=== PATIENT | female | born 1945 | race Caucasian/White ===

== ENCOUNTER 2016-10-30 11:09 | Observation (INO) | payer MEDICARE, OTHER ==
[2016-10-30] MEDS ORDERED: NITROGLYCERIN OINT 1 INCH/GM PACKET TOPICAL STA (11:27)
[2016-10-30] MEDS ORDERED: ASPIRIN 81 MG CHEW PO STA (11:27)
--- NOTE | 2016-10-30 11:29 | ED ---
General Adult HPI - General Chief complaint: Chest Pain Stated complaint: Chest Pain Time Seen by Provider: 10/30/16 11:16 Source: patient, RN notes reviewed Mode of arrival: wheelchair Limitations: no limitations - History of Present Illness Initial comments: Patient is a pleasant 71-year-old female presenting to the emergency department complaining of chest discomfort. Onset was when she woke this morning. Discomfort was more severe then improved and now has resolved. Discomfort improved over a couple of hours. Discomfort did feel like indigestion. Patient does have a history of previous heart attack however this does not feel similar. Discomfort is sternal. No associated dyspnea, nausea, or diaphoresis. No radiation. - Related Data Home Medications Medication Instructions Recorded Confirmed Aspirin 325 mg PO DAILY 10/30/16 10/30/16 Cyanocobalamin (Vitamin B-12) 1,000 mcg PO DAILY 10/30/16 10/30/16 [Vitamin B-12] Ferrous Sulfate [Feosol] 325 mg PO DAILY 10/30/16 10/30/16 Glimepiride [Amaryl] 1 mg PO DAILY 10/30/16 10/30/16 Isosorbide Mononitrate 20 mg PO DAILY 10/30/16 10/30/16 Losartan Potassium [Losartan 25 mg PO DAILY 10/30/16 10/30/16 Potassium] Magnesium Oxide [Magnesium] 500 mg PO DAILY 10/30/16 10/30/16 Metoprolol Tartrate 25 mg PO DAILY 10/30/16 10/30/16 Omeprazole [Omeprazole] 20 mg PO DAILY 10/30/16 10/30/16 Simvastatin [Simvastatin] 20 mg PO HS 10/30/16 10/30/16 Sodium Bicarbonate Tab 650 mg PO DAILY 10/30/16 10/30/16 busPIRone HCL [busPIRone HCL] 10 mg PO BID 10/30/16 10/30/16 traMADol HCl [Ultram] 50 mg PO QID PRN 10/30/16 10/30/16 Allergies Allergy/AdvReac Type Severity Reaction Status Date / Time No Known Allergies Allergy Verified 10/30/16 11:16 Review of Systems ROS Statement: Those systems with pertinent positive or pertinent negative responses have been documented in the HPI. ROS Other: All systems not noted in ROS Statement are negative. Constitutional: Denies: fever Eyes: Denies: eye pain ENT: Denies: ear pain Respiratory: Denies: cough, dyspnea Cardiovascular: Reports: chest pain Endocrine: Denies: fatigue Gastrointestinal: Denies: abdominal pain, nausea, vomiting Genitourinary: Denies: urgency Musculoskeletal: Denies: back pain Skin: Denies: rash Neurological: Denies: weakness Past Medical History Past Medical History: Coronary Artery Disease (CAD), CVA/TIA, Diabetes Mellitus , Hyperlipidemia, Hypertension, Myocardial Infarction ([place]) History of Any Multi-Drug Resistant Organisms: None Reported Past Surgical History: Bowel Resection, Orthopedic Surgery Additional Past Surgical History / Comment(s): toe amputation hand Past Psychological History: No Psychological Hx Reported Smoking Status: Former smoker Past Alcohol Use History: None Reported Past Drug Use History: None Reported General Exam Limitations: no limitations General appearance: alert, in no apparent distress Head exam: Present: atraumatic Eye exam: Present: normal appearance, PERRL ENT exam: Present: normal oropharynx Neck exam: Present: normal inspection Respiratory exam: Present: normal lung sounds bilaterally. Absent: chest wall tenderness Cardiovascular Exam: Present: regular rate, normal rhythm Expanded Peripheral pulses: 2+: Radial (R), Radial (L), Dorsalis Pedis (R), Dorsalis Pedis (L) GI/Abdominal exam: Present: soft. Absent: tenderness Extremities exam: Present: normal inspection Neurological exam: Present: alert Psychiatric exam: Present: normal affect, normal mood Skin exam: Present: normal color Course Vital Signs 10/30/16 10/30/16 10/30/16 11:13 11:39 12:00 Temperature 99.0 F Pulse Rate 79 71 58 L Respiratory 18 20 16 Rate Blood Pressure 111/53 106/52 122/58 O2 Sat by Pulse 97 96 98 Oximetry 10/30/16 14:28 Temperature 98.1 F Pulse Rate 65 Respiratory 16 Rate Blood Pressure 93/50 O2 Sat by Pulse 97 Oximetry EKG Findings - EKG Comments: EKG Findings:: Normal sinus rhythm 74. Normal intervals. Normal axis. Normal QRS. Normal ST-T. Medical Decision Making - Medical Decision Making Patient reevaluated and resting comfortably in bed. Patient and family updated on results and plan. Dr. barnett has been paged for admission for Dr. Harris. - Lab Data Result diagrams: 10/30/16 11:57 10/30/16 11:57 Lab Results 10/30/16 10/30/16 10/30/16 Range/Units 11:57 11:57 11:57 WBC 8.0 (3.8-10.6) k/uL RBC 3.31 L (3.80-5.40) m/uL Hgb 10.8 L (11.4-16.0) gm/dL Hct 32.2 L (34.0-46.0) % MCV 97.4 (80.0-100.0) fL MCH 32.6 (25.0-35.0) pg MCHC 33.4 (31.0-37.0) g/dL RDW 14.2 (11.5-15.5) % Plt Count 156 (150-450) k/uL Neutrophils % 79 % Lymphocytes % 14 % Monocytes % 4 % Eosinophils % 1 % Basophils % 0 % Neutrophils # 6.3 (1.3-7.7) k/uL Lymphocytes # 1.1 (1.0-4.8) k/uL Monocytes # 0.3 (0-1.0) k/uL Eosinophils # 0.1 (0-0.7) k/uL Basophils # 0.0 (0-0.2) k/uL PT (9.0-12.0) sec INR (<1.1) APTT (22.0-30.0) sec Sodium 140 (137-145) mmol/L Potassium 4.7 (3.5-5.1) mmol/L Chloride 108 H (98-107) mmol/L Carbon Dioxide 21 L (22-30) mmol/L Anion Gap 11 mmol/L BUN 27 H (7-17) mg/dL Creatinine 1.31 H (0.52-1.04) mg/dL Est GFR (MDRD) Af Amer 48 (>60 ml/min/1.73 sqM) Est GFR (MDRD) Non-Af 40 (>60 ml/min/1.73 sqM) Glucose 221 H (74-99) mg/dL Calcium 9.1 (8.4-10.2) mg/dL Magnesium 1.5 L (1.6-2.3) mg/dL Total Bilirubin 1.0 (0.2-1.3) mg/dL AST 24 (14-36) U/L ALT 33 (9-52) U/L Alkaline Phosphatase 59 (38-126) U/L Total Creatine Kinase 70 (30-135) U/L CK-MB (CK-2) 1.4 (0.0-2.4) ng/mL CK-MB (CK-2) Rel Index 2.0 Troponin I <0.012 (0.000-0.034) ng/mL Total Protein 7.0 (6.3-8.2) g/dL Albumin 3.6 (3.5-5.0) g/dL 10/30/16 Range/Units 11:57 WBC (3.8-10.6) k/uL RBC (3.80-5.40) m/uL Hgb (11.4-16.0) gm/dL Hct (34.0-46.0) % MCV (80.0-100.0) fL MCH (25.0-35.0) pg MCHC (31.0-37.0) g/dL RDW (11.5-15.5) % Plt Count (150-450) k/uL Neutrophils % % Lymphocytes % % Monocytes % % Eosinophils % % Basophils % % Neutrophils # (1.3-7.7) k/uL Lymphocytes # (1.0-4.8) k/uL Monocytes # (0-1.0) k/uL Eosinophils # (0-0.7) k/uL Basophils # (0-0.2) k/uL PT 10.8 (9.0-12.0) sec INR 1.1 (<1.1) APTT 23.3 (22.0-30.0) sec Sodium (137-145) mmol/L Potassium (3.5-5.1) mmol/L Chloride (98-107) mmol/L Carbon Dioxide (22-30) mmol/L Anion Gap mmol/L BUN (7-17) mg/dL Creatinine (0.52-1.04) mg/dL Est GFR (MDRD) Af Amer (>60 ml/min/1.73 sqM) Est GFR (MDRD) Non-Af (>60 ml/min/1.73 sqM) Glucose (74-99) mg/dL Calcium (8.4-10.2) mg/dL Magnesium (1.6-2.3) mg/dL Total Bilirubin (0.2-1.3) mg/dL AST (14-36) U/L ALT (9-52) U/L Alkaline Phosphatase (38-126) U/L Total Creatine Kinase (30-135) U/L CK-MB (CK-2) (0.0-2.4) ng/mL CK-MB (CK-2) Rel Index Troponin I (0.000-0.034) ng/mL Total Protein (6.3-8.2) g/dL Albumin (3.5-5.0) g/dL - Radiology Data Radiology results: image reviewed (Chest x-ray shows borderline cardiomegaly.) Critical Care Time Critical Care Time: Yes Total Critical Care Time: 31 Disposition Clinical Impression: Unstable angina pectoris Disposition: ADMITTED IP TO THIS [facility] Condition: Serious Referrals: Martina Harris MD [Primary Care Provider] - 1-2 days Time of Disposition: 14:50
--- NOTE | 2016-10-30 11:51 | XR ---
EXAMINATION TYPE: XR chest 2V DATE OF EXAM: 10/30/2016 HISTORY: Chest Pain. REFERENCE: Previous study dated 07/07/2013. FINDINGS: Heart size upper limits of normal. The lungs appear clear. Pleural spaces are clear. IMPRESSION: BORDERLINE CARDIOMEGALY.
[2016-10-30 12:20] LABS: Basophils % (A) 0 %; CH 33.1; CHCM 34.2; Eosinophils # (A) 0.1 k/uL (0-0.7); Eosinophils % (A) 1 %; HCT 32.2 % (34.0-46.0); HDW 2.94; HGB 10.8 gm/dL (11.4-16.0); Luc # (Auto) 0.14; Luc % (Auto) 2; Lymphocytes # (A) 1.1 k/uL (1.0-4.8); Lymphocytes % (A) 14 %; MCH 32.6 pg (25.0-35.0); MCHC 33.4 g/dL (31.0-37.0); MCV 97.4 fL (80.0-100.0); Mean Platelet Volume 7.3; Monocytes # (A) 0.3 k/uL (0-1.0); Monocytes % (A) 4 %; Neutrophils # (A) 6.3 k/uL (1.3-7.7); Neutrophils % (A) 79 %; RBC 3.31 m/uL (3.80-5.40); RDW 14.2 % (11.5-15.5); WBC (Perox) 8.33
[2016-10-30 12:28] LABS: INR 1.1 (<1.1); Partial Thromboplastin Time 23.3 sec (22.0-30.0); Prothrombin Time 10.8 sec (9.0-12.0)
[2016-10-30 12:35] LABS: Calcium 9.1 mg/dL (8.4-10.2); Magnesium 1.5 mg/dL (1.6-2.3); Potassium 4.7 mmol/L (3.5-5.1)
[2016-10-30 12:46] LABS: Creatine Kinase 70 U/L (30-135)
[2016-10-30 13:00] LABS: Creatine Kinase MB 1.4 ng/mL (0.0-2.4); Troponin I <0.012 ng/mL (0.000-0.034)
[2016-10-30] MEDS ORDERED: MAGNESIUM OXIDE 400 MG TAB PO STA (14:37)
[2016-10-30] MEDS ORDERED: HEPARIN SODIUM,PORCINE 5,000 UNIT/ML 1 ML VIAL IV ONE (14:50)
[2016-10-30] MEDS ORDERED: NITROGLYCERIN SL TABS 0.4 MG TAB SUBLINGUAL PRN (14:50)
[2016-10-30] MEDS ORDERED: HEPARIN SODIUM,PORCINE 5,000 UNIT/ML 1 ML VIAL IV PRN (14:50)
[2016-10-30] MEDS ORDERED: HEPARIN SODIUM,PORCINE/D5W PMX 25,000 UNIT in DEXTROSE/WATER 1 500ML.BAG IV SCH (15:00)
[2016-10-30 17:14] LABS: Glucose,Whole Blood 90 mg/dL (75-99)
[2016-10-30] MEDS: NITROGLYCERIN OINT 1 INCH/GM PACKET TOPICAL SCH (17:32)
[2016-10-30] MEDS ORDERED: Magnesium Replacement Protocol 1 EACH MISC MISCELLANE PRN (19:06)
[2016-10-30] MEDS ORDERED: traMADol 50 MG TAB PO PRN (19:06)
[2016-10-30 20:31] LABS: Glucose,Whole Blood 202 mg/dL (75-99)
[2016-10-30] MEDS ORDERED: FERROUS SULFATE 325 MG TAB PO STA (20:38)
[2016-10-30 20:59] LABS: Creatine Kinase 85 U/L (30-135)
[2016-10-30] MEDS ORDERED: ATORVASTATIN 10 MG TAB PO SCH (21:00)
[2016-10-30 21:09] LABS: Creatine Kinase MB 1.3 ng/mL (0.0-2.4); Troponin I <0.012 ng/mL (0.000-0.034)
[2016-10-30] MEDS: busPIRone HCl 10 MG TAB PO SCH (22:44)
[2016-10-31] MEDS ORDERED: TEMAZEPAM 15 MG CAP PO PRN (00:02)
[2016-10-31] MEDS ORDERED: HYDROmorphone 1 MG/ML 1 ML SYRINGE IVP PRN (00:02)
[2016-10-31 00:37] LABS: Creatine Kinase 83 U/L (30-135)
[2016-10-31 00:50] LABS: Creatine Kinase MB 1.1 ng/mL (0.0-2.4); Troponin I <0.012 ng/mL (0.000-0.034)
[2016-10-31 03:46] LABS: Basophils % (A) 0 %; CH 32.9; CHCM 33.7; Eosinophils # (A) 0.1 k/uL (0-0.7); Eosinophils % (A) 3 %; HCT 29.9 % (34.0-46.0); HDW 2.88; HGB 9.9 gm/dL (11.4-16.0); Luc # (Auto) 0.14; Luc % (Auto) 3; Lymphocytes # (A) 1.3 k/uL (1.0-4.8); Lymphocytes % (A) 25 %; MCH 32.6 pg (25.0-35.0); MCHC 33.2 g/dL (31.0-37.0); MCV 98.1 fL (80.0-100.0); Mean Platelet Volume 7.4; Monocytes # (A) 0.4 k/uL (0-1.0); Monocytes % (A) 7 %; Neutrophils # (A) 3.3 k/uL (1.3-7.7); Neutrophils % (A) 63 %; RBC 3.04 m/uL (3.80-5.40); RDW 14.2 % (11.5-15.5); WBC 5.3 k/uL (3.8-10.6); WBC (Perox) 5.52
[2016-10-31 04:35] LABS: Calcium 8.5 mg/dL (8.4-10.2); Magnesium 1.6 mg/dL (1.6-2.3); Potassium 4.2 mmol/L (3.5-5.1)
[2016-10-31] MEDS: NITROGLYCERIN OINT 1 INCH/GM PACKET TOPICAL SCH ×3 (05:41→13:23)
[2016-10-31 06:44] LABS: Glucose,Whole Blood 137 mg/dL (75-99)
[2016-10-31 07:16] VITALS: RESP 16
[2016-10-31] MEDS ORDERED: PANTOPRAZOLE 40 MG TABLET PO SCH (07:30)
[2016-10-31] MEDS ORDERED: FERROUS SULFATE 325 MG TAB PO SCH (09:00)
[2016-10-31] MEDS ORDERED: GLIMEPIRIDE 1 MG TAB PO SCH (09:00)
[2016-10-31] MEDS ORDERED: ASPIRIN 325 MG TAB PO SCH ×2 (09:00)
[2016-10-31] MEDS ORDERED: MAGNESIUM OXIDE 400 MG TAB PO SCH (09:00)
[2016-10-31] MEDS ORDERED: LOSARTAN 25 MG TAB PO SCH (09:00)
[2016-10-31] MEDS ORDERED: SODIUM BICARBONATE TAB 650 MG TAB PO SCH (09:00)
[2016-10-31] MEDS ORDERED: METOPROLOL TARTRATE 25 MG TAB PO SCH (09:00)
[2016-10-31] MEDS ORDERED: ISOSORBIDE MONONITRATE 20 MG TAB PO SCH (09:00)
[2016-10-31] MEDS: busPIRone HCl 10 MG TAB PO SCH (09:05)
--- NOTE | 2016-10-31 10:49 | HP ---
DATE OF ADMISSION: 10/30/2016 The chief complaints are chest pain. HISTORY OF PRESENT ILLNESS: This 71-year-old woman with a pass medical history of multiple medical problems, including history of CAD, history of CVA, TIA, diabetes mellitus, DVT, gastroesophageal reflux disease, hypertension, hyperlipidemia, myocardial infarction, vascular disorder, appendectomy, bladder surgery, bowel resection, being followed by Dr. Harris in the outpatient setting was complaining of abdominal pain, which was felt mostly in the epigastrium since this morning when the patient awoke. The pain lasted for about a couple hours. There is no radiation. There is no sweating or palpitations. No history of any hematochezia, melena, there is no history of fever, rigors or chills at this time. PAST MEDICAL HISTORY: History of CAD, history of CVA, TIA, history of diabetes, DVT history of GERD, hypertension, hyperlipidemia, history of myocardial infarction, history of appendectomy, bladder surgery. Medications prior to admission include home medications are: 1. Magnesium 500 mg p.o. daily. 2. Iron sulfate 320 mg daily. 3. Vitamin B12 1000 mcg p.o. daily. 4. Aspirin 320 mg daily. 5. Ultram 50 mg q.i.d. p.r.n. 6. Sodium bicarb 650 p.o. daily. 8. Omeprazole 20 mg p.o. daily. 9. Metoprolol 25 mg a daily. 10. Losartan 25 mg p.o. daily. 11. Imdur 20 mg daily. 12. Amaryl 1 mg p.o. daily. 13. Buspirone 10 mg p.o. b.i.d. ALLERGIES: None. FAMILY HISTORY: History of diabetes mellitus in the family. SOCIAL HISTORY: Previous history of smoking. No history of current smoking. No alcohol intake. REVIEW OF SYSTEMS: ENT: Diminishing hearing. Diminished vision. CARDIOVASCULAR SYSTEM: As mentioned earlier. GI: As mentioned earlier. : No dysuria. Nervous system: No numbness or weakness. ALLERGIES/IMMUNOLOGY: No asthma or hayfever. MUSCULOSKELETAL: As mentioned earlier. HEMATOLOGY/ONCOLOGY: No history of anemia. ENDOCRINE: No history of diabetes or hypothyroidism. CONSTITUTIONAL: As mentioned earlier. DERMATOLOGY: Negative. RHEUMATOLOGY: Negative. PSYCHIATRY: As mentioned earlier. PHYSICAL EXAMINATION: Alert and oriented times three. Pulse 76, blood pressure 131/62 respirations 18, temperature 98.8. Pulse ox 97% on room air. HEENT: Oral mucosa moist. NECK: No jugular venous distention. No carotid bruit. No lymph node enlargement. CARDIOVASCULAR: S1, S2 muffled. No S3, no S4. RESPIRATORY: Breath sounds diminished at the bases. No rhonchi, no crackles. ABDOMEN: Soft, nontender. No mass palpable. No guarding. No rigidity. LEGS: No edema. No swelling. CENTRAL NERVOUS SYSTEM: Higher functions as mentioned earlier. Moves all four limbs. No focal deficits. LYMPHATICS: No lymph nodes palpable in the neck, axillae or groin. SKIN: No ulcer, rash or bleeding. LABS: WBC 8, hemoglobin is 10.8. Creatinine is 1.31, glucose 221. ASSESSMENT: 1. Chest pain and epigastric pain, possible unstable angina, possible gastroesophageal reflux disease. 2. Increased creatinine with possible mild acute renal failure secondary to dehydration. 3. Decreased CO2. 4. Hypomagnesemia. 5. Anemia, normocytic anemia of chronic disease. 6. History of coronary artery disease. 7. History of cerebrovascular accident. 8. Diabetes mellitus type 2. 9. History of deep venous thrombosis. 10. History of gastroesophageal reflux disease. 11. Hypertension. 12. Hyperlipidemia. 13. History of myocardial infarction. 14. History of degenerative joint disease. 15. History of transient ischemic attack. 16. History of rectal cancer status post chemoradiation. 17. History of chronic obstructive pulmonary disease. 18. History of appendectomy. 19. History of colonoscopy. 20. Remote history of nicotine dependence. 21. FULL CODE. RECOMMENDATIONS AND DISCUSSION: In this 71-year-old woman who presented with the multiple complex medical issues, we will monitor the patient closely. Continue the current medications. Continue symptomatic treatment. Otherwise proton pump inhibitors. I would also recommend cardiology consultation. Resume the home medications. Rule out myocardial infarction. Guarded prognosis because of multiple complex medical issues. Further recommendations to follow. A copy of dictation being forwarded to Dr. Harris who is the primary physician. Discussed with the patient. Understands and agrees. AISHA
[2016-10-31 11:44] VITALS: BP 124/62; PULSE 59; TEMP 97.7
[2016-10-31] MEDS ORDERED: CYANOCOBALAMIN 500 MCG TAB PO SCH (12:00)
[2016-10-31 12:08] LABS: Glucose,Whole Blood 264 mg/dL (75-99)
--- NOTE | 2016-10-31 12:48 | CONS ---
DATE OF CONSULTATION: This is a 71-year-old lady with a history of remote myocardial infarction 1994, details unclear. Has hypertension, hyperlipidemia and type 2 diabetes mellitus, and anemia. I see her in the office usually and the last visit was in April of last year. She also had a stress test, which did not reveal any ischemia about 15 months ago. At the time of my evaluation, she is resting comfortably without symptoms, but she came into the hospital with an episode of what she described as a sharp pain in the chest. She woke up and then felt that there was some abdominal discomfort. Then she felt some sharp discomfort in the chest that seemed to go away and then came back again. She felt concerned and came into the hospital. Pain has resolved. Her troponins are normal. She is resting comfortably. Denies any recurrence of symptoms. Her stress test about 14 to 15 months ago was unremarkable for ischemia. She is asymptomatic at the time of my evaluation of troponins are normal. EKG revealed evidence of old anteroseptal NE, no acute changes. PAST MEDICAL HISTORY: 1. History of CAD, previous myocardial infarction, details unclear, but recent stress did not reveal ischemia. 2. Type 2 diabetes mellitus. 3. Hypertension. 4. Hyperlipidemia. 5. Status post bowel resection. 6. Some orthopedic surgery with amputation of a toe, details unclear. 7. Patient also has anemia and is on iron supplements. SOCIAL HISTORY: Patient quit smoking several years ago, does not use alcohol. ALLERGIES: NONE. MEDICATIONS: Include: 1. Omeprazole 20 mg daily. 2. Simvastatin 20 mg daily. 3. Tramadol. 4. Metoprolol tartrate 25 mg daily. 5. Losartan 25 mg daily. 6. Glimepiride 1 mg daily. 7. Iron supplements. 8. Aspirin 81 mg daily. On examination, blood pressure is 130/70, pulse rate is 70 per minute, regular. HEENT: Unremarkable. Fundus was not examined by me. Neck is supple. No JVD. I do not hear a carotid bruit. There is no thyromegaly. Heart exam reveals S1 and S2 heard normally without any significant rub, murmur or gallop. Lungs are clear. ABDOMEN: Soft, nontender. Lower extremities reveal normal pulses. No edema. Central nervous system is normal. EKG revealed sinus mechanism, QRS pattern in leads V1 to V3 could be possibly old anteroseptal NE. No acute changes. LABORATORY DATA: Revealed her troponins are unremarkable. She has a mildly elevated creatinine at 1.22. Hemoglobin is down to about 9.9, but she seems to be chronically low and takes iron supplements. IMPRESSION: 1. Chest pain syndrome very atypical, does not seem angina. 2. Hypertension. 3. Type 2 diabetes. 4. Hyperlipidemia. 5. Remote history of myocardial infarction with unremarkable stress test 14 to 15 months ago. RECOMMENDATIONS: I am recommending that we discontinue heparin, increase activity. If she has no further symptoms, she can be discharged and I will see her in the office next Wednesday. Appointment were has been made and we will then make further recommendations. Her presentation today appears to be quite atypical and I will pursue any work-up as an outpatient. Discussed my thoughts in detail with the patient will and this note will go to her primary care physician, Dr. Harris.
--- NOTE | 2016-11-01 14:14 | DS ---
DATE OF ADMISSION: 10/30/2016 DATE OF DISCHARGE: 10/31/2016 FINAL DIAGNOSES: 1. Chest pain, with epigastric pain, possible unstable angina, possible gastroesophageal reflux disease, improved. 2. Increased creatinine with possible mild acute renal failure secondary to dehydration, improved. 3. Decreased CO2. 4. Mild hypomagnesemia. 5. Anemia, normocytic anemia of chronic disease. 6. History of coronary artery disease. 7. History of cerebrovascular accident. 8. Diabetes mellitus type 2. 9. History of deep venous thrombosis. 10. History of gastroesophageal reflux disease. 11. Hypertension, essential. 12. Hyperlipidemia. 13. History of myocardial infarction. 14. History of degenerative joint disease. 15. History of transient ischemic attack. 16. History of rectal cancer status post chemoradiation. 17. Chronic obstructive pulmonary disease. 18. History of appendectomy. 19. History of colonoscopy. 20. Remote history of nicotine dependence. 21. FULL CODE. DISCHARGE DISPOSITION: Patient will be discharged in a stable condition with guarded prognosis. HISTORY OF PRESENT ILLNESS: This 71-year-old woman with a past history of multiple medical problems was admitted with features of chest pain and epigastric pain. The patient is being monitored closely. Myocardial infarction ruled out. On exam, vital signs are stable. CARDIOVASCULAR: S1, S2 muffled. Abdomen soft. Nervous system: No focal deficits. Discharge advice and medications: 1. Discharge diet is cardiac. 2. Activity limited until follow-up. 3. Follow up with Dr. Harris 2 to 3 days. 4. Follow up with Dr. Smith Ann as advised. 5. Dr. Smith Ann cleared the patient for discharge. MEDICATIONS: 1. Aspirin 325 mg daily. 2. Buspirone 10 mg p.o. b.i.d. 3. Vitamin B12 1000 mg p.o. daily. 4. Iron Sulfate 325 mg p.o. daily. 5. Amaryl 1 mg p.o. daily. 6. Imdur 20 mg p.o. daily. 7. Losartan 25 mg p.o. daily. 8. Magnesium 500 mg p.o. daily. 9. Metoprolol 25 mg p.o. daily. 10. Omeprazole 20 mg p.o. daily. 11. Simvastatin 20 p.o. daily. 12. Sodium bicarb 650 p.o. daily. 13. Ultram 50 mg q.i.d. p.r.n.
== END 2016-10-31 14:50 | disposition home or self-care (01) ==
LOC: EC 11:09 → 3OBS 14:50 → INTOOBSV 14:50
PROVIDERS: ADMIT Internal Medicine; ATTEND Internal Medicine
DX: R07.89 Other chest pain (principal); R10.13 Epigastric pain; R74.8 Abnormal levels of other serum enzymes; E86.0 Dehydration; E83.42 Hypomagnesemia; D63.8 Anemia in other chronic diseases classified elsewhere; Z86.73 Personal history of transient ischemic attack (TIA), and cerebral infarction without residual deficits; I25.10 Atherosclerotic heart disease of native coronary artery without angina pectoris; E11.9 Type 2 diabetes mellitus without complications; Z86.718 Personal history of other venous thrombosis and embolism; K21.9 Gastro-esophageal reflux disease without esophagitis; I10 Essential (primary) hypertension; E78.5 Hyperlipidemia, unspecified; I25.2 Old myocardial infarction; J44.9 Chronic obstructive pulmonary disease, unspecified; M19.90 Unspecified osteoarthritis, unspecified site; Z79.84 Long term (current) use of oral hypoglycemic drugs; Z79.82 Long term (current) use of aspirin; Z79.899 Other long term (current) drug therapy; Z87.891 Personal history of nicotine dependence; Z92.21 Personal history of antineoplastic chemotherapy; Z92.3 Personal history of irradiation; Z85.048 Personal history of other malignant neoplasm of rectum, rectosigmoid junction, and anus
CPT/HCPCS: 99291; 96376 ×2; 96365 ×2; 96366 ×2; 36415; 93005; 80061; 80053; 80048; 82550; 82553; 83735 ×2; 84484; 85025 ×2; 85610; 85730 ×2; 71020; G0378 ×2; J1644 ×2

== ENCOUNTER 2017-02-15 09:36 | Inpatient (IN) | payer MEDICARE, OTHER ==
[2017-02-15] MEDS ORDERED: SODIUM CHLORIDE 0.9% 2,000 ML IV STA (10:22)
[2017-02-15 11:18] LABS: Calcium 9.2 mg/dL (8.4-10.2); Potassium 4.4 mmol/L (3.5-5.1); Total Bilirubin 1.1 mg/dL (0.2-1.3); Total Protein 7.5 g/dL (6.3-8.2)
--- NOTE | 2017-02-15 11:22 | XR ---
EXAMINATION TYPE: XR chest 2V DATE OF EXAM: 02/15/2017 COMPARISON: 10/30/2016 HISTORY: 72-year-old female weakness for 2 days and pain TECHNIQUE: Frontal and lateral views FINDINGS: Heart is normal size. Atherosclerotic arch calcifications. Mild bronchial cuffing. Some strandy opaci ty at the medial right base. Patchy posterior basilar opacity is also noted on the lateral view. IMPRESSION: Some peribronchial cuffing could represent bronchitis or chronic asthma. Additionally, there is some patchy atelectasis or early infiltrate at the posterior base on the lateral view. Correlate for any i nfectious signs/symptoms.
[2017-02-15] MEDS ORDERED: ACETAMINOPHEN TAB 500 MG TAB PO STA (13:05)
[2017-02-15 13:07] LABS: Appearance,Urine Cloudy (Clear); Bacteria,Urine Occasional /hpf; Bilirubin,Urine Negative (Negative); Glucose,Urine (UA) Negative (Negative); Ketones,Urine Negative (Negative); Leukocyte Esterase,Urine Large (Negative); Mucus,Urine Rare /hpf; Nitrite,Urine Negative (Negative); PH, Urine 5.5 (5.0-8.0); Particle Count 2584; Protein,Urine 2+ (Negative); RBC,Urine 3 /hpf (0-5); Specific Gravity,Urine 1.013 (1.001-1.035); Squamous Epithelial Cell,Urine <1 /hpf (0-4); UA Billing (MACRO vs. MICRO) MICRO; Urobilinogen,Urine <2.0 mg/dL (<2.0); WBC,Urine >182 /hpf (0-5)
[2017-02-15] MEDS ORDERED: AZITHROMYCIN 500 MG in SODIUM CHLORIDE 0.9% 250 ML IVPB STA (13:20)
[2017-02-15] MEDS ORDERED: MORPHINE SULFATE 4 MG/ML SYRINGE IV PRN (14:04)
[2017-02-15] MEDS ORDERED: ONDANSETRON 4 MG/2 ML VIAL IVP PRN (14:04)
[2017-02-15] MEDS ORDERED: TEMAZEPAM 15 MG CAP PO PRN (14:04)
[2017-02-15] MEDS ORDERED: NALOXONE 0.4 MG/ML 1 ML VIAL IV PRN (14:04)
--- NOTE | 2017-02-15 14:04 | ED ---
Nausea/Vomiting/Diarrhea HPI - General Chief complaint: Nausea/Vomiting/Diarrhea Stated complaint: poss dehydration, weakness Time Seen by Provider: 02/15/17 10:08 Source: patient Mode of arrival: wheelchair Limitations: no limitations - History of Present Illness Initial comments: Patient presents with possible dehydration. She also has a productive cough. Her symptoms have been getting worse for a few days. She has taken no medications. She was not doing anything when her symptoms began. She is unaware of any sick contacts. She has not had any travel. She has no palpitations. She has a history of a colostomy. She states that it is putting out a lot of liquidy stool. - Related Data Home Medications Medication Instructions Recorded Confirmed Aspirin 325 mg PO DAILY 10/30/16 02/15/17 Cyanocobalamin (Vitamin B-12) 1,000 mcg PO DAILY 10/30/16 02/15/17 [Vitamin B-12] Ferrous Sulfate [Iron (65 MG 325 mg PO HS 10/30/16 02/15/17 Elemental)] Glimepiride [Amaryl] 1 mg PO DAILY 10/30/16 02/15/17 Isosorbide Mononitrate 20 mg PO DAILY 10/30/16 02/15/17 Losartan Potassium 25 mg PO DAILY 10/30/16 02/15/17 Magnesium Oxide [Magnesium] 500 mg PO BID 10/30/16 02/15/17 Metoprolol Tartrate 25 mg PO HS 10/30/16 02/15/17 Omeprazole 20 mg PO DAILY 10/30/16 02/15/17 Simvastatin 20 mg PO HS 10/30/16 02/15/17 Sodium Bicarbonate Tab 650 mg PO DAILY 10/30/16 02/15/17 busPIRone HCL 10 mg PO BID 10/30/16 02/15/17 Folic Acid 0.8 mg PO DAILY 02/15/17 02/15/17 Allergies Allergy/AdvReac Type Severity Reaction Status Date / Time No Known Allergies Allergy Verified 02/15/17 10:03 Review of Systems ROS Statement: Those systems with pertinent positive or pertinent negative responses have been documented in the HPI. ROS Other: All systems not noted in ROS Statement are negative. Past Medical History Past Medical History: Coronary Artery Disease (CAD), Cancer, CVA/TIA, Diabetes Mellitus, Deep Vein Thrombosis (DVT), GERD/Reflux, Hyperlipidemia, Hypertension , Myocardial Infarction ([place]), Osteoarthritis (OA), Vascular Disorder Additional Past Medical History / Comment(s): tia, chronic back pain, rectal cancer 2008(had sx, chemo, radiation), "bad circulation", emphysema,uti, had a pne vaccine after age 63-not sure of exact date. Last Myocardial Infarction Date:: 1994 History of Any Multi-Drug Resistant Organisms: None Reported Past Surgical History: Appendectomy, Bladder Surgery, Bowel Resection, Orthopedic Surgery, Tubal Ligation Additional Past Surgical History / Comment(s): colonoscopy, bowel resection w/ colostomy. stated has 3 colostmy sx. rt great toe amp, rt hand trigger finger sx , blood clots removed rt leg 2008, rt carpal tunnel release, Past Anesthesia/Blood Transfusion Reactions: No Reported Reaction Additional Past Anesthesia/Blood Transfusion Reaction / Comment(s): had blood transfusion-no reaction Past Psychological History: No Psychological Hx Reported Smoking Status: Former smoker - Past Family History Mother Family Medical History: Diabetes Mellitus Father Family Medical History: Myocardial Infarction ([place]) General Exam Limitations: no limitations General appearance: alert, in no apparent distress Head exam: Present: atraumatic, normocephalic, normal inspection Eye exam: Present: normal appearance, PERRL, EOMI. Absent: scleral icterus, conjunctival injection, periorbital swelling ENT exam: Present: normal exam, mucous membranes moist Neck exam: Present: normal inspection. Absent: tenderness, meningismus, lymphadenopathy Respiratory exam: Present: normal lung sounds bilaterally, wheezes, rales. Absent: respiratory distress, rhonchi, stridor Cardiovascular Exam: Present: regular rate, normal rhythm, normal heart sounds. Absent: systolic murmur, diastolic murmur, rubs, gallop, clicks GI/Abdominal exam: Present: soft, normal bowel sounds. Absent: distended, tenderness, guarding, rebound, rigid Extremities exam: Present: normal inspection, full ROM, normal capillary refill. Absent: tenderness, pedal edema, joint swelling, calf tenderness Back exam: Present: normal inspection Neurological exam: Present: alert, oriented X3, CN II-XII intact Psychiatric exam: Present: normal affect, normal mood Skin exam: Present: warm, dry, intact, normal color. Absent: rash Course Vital Signs 02/15/17 02/15/17 02/15/17 09:45 09:53 11:00 Temperature 99.7 F H 101.1 F H Pulse Rate 94 91 Respiratory 18 18 Rate Blood Pressure 139/64 150/68 O2 Sat by Pulse 96 95 Oximetry 02/15/17 02/15/17 12:10 12:54 Temperature 101.1 F H 100.1 F H Pulse Rate 88 87 Respiratory 16 18 Rate Blood Pressure 136/64 136/63 O2 Sat by Pulse 95 97 Oximetry Medical Decision Making - Medical Decision Making Patient presents with not feeling very well. Chest x-ray reveals a multifocal pneumonia. Urinalysis is positive for infection. I have sent blood cultures. I started the patient on IV ceftriaxone and azithromycin. Patient will be admitted to the hospital. - Lab Data Result diagrams: 02/15/17 10:40 Lab Results 02/15/17 02/15/17 02/15/17 Range/Units 10:40 10:40 12:55 Sodium 136 L (137-145) mmol/L Potassium 4.4 (3.5-5.1) mmol/L Chloride 103 (98-107) mmol/L Carbon Dioxide 21 L (22-30) mmol/L Anion Gap 12 mmol/L BUN 20 H (7-17) mg/dL Creatinine 1.19 H (0.52-1.04) mg/dL Est GFR (MDRD) Af Amer 54 (>60 ml/min/1.73 sqM) Est GFR (MDRD) Non-Af 44 (>60 ml/min/1.73 sqM) Glucose 131 H (74-99) mg/dL Calcium 9.2 (8.4-10.2) mg/dL Total Bilirubin 1.1 (0.2-1.3) mg/dL AST 20 (14-36) U/L ALT 29 (9-52) U/L Alkaline Phosphatase 82 (38-126) U/L Troponin I 0.014 (0.000-0.034) ng/mL Total Protein 7.5 (6.3-8.2) g/dL Albumin 3.9 (3.5-5.0) g/dL Lipase 39 (23-300) U/L Urine Color Yellow Urine Appearance Cloudy H (Clear) Urine pH 5.5 (5.0-8.0) Ur Specific [place] 1.013 (1.001-1.035) Urine Protein 2+ H (Negative) Urine Glucose (UA) Negative (Negative) Urine Ketones Negative (Negative) Urine Blood Small H (Negative) Urine Nitrite Negative (Negative) Urine Bilirubin Negative (Negative) Urine Urobilinogen <2.0 (<2.0) mg/dL Ur Leukocyte Esterase Large H (Negative) Urine RBC 3 (0-5) /hpf Urine WBC >182 H (0-5) /hpf Urine WBC Clumps Few H (None) /hpf Ur Squamous Epith Cells <1 (0-4) /hpf Urine Bacteria Occasional H (None) /hpf Urine Mucus Rare H (None) /hpf 02/15/17 14:03 Twelve-lead EKG is obtained, interpreted by me as showing ventricular rate 85 bpm, normal MT interval and QRS, axis, no ST elevation or depression, interpreted by me as normal sinus rhythm. Disposition Clinical Impression: Dehydration, Pneumonia, UTI (urinary tract infection) Disposition: ADMITTED IP TO THIS HOSP Condition: Serious Referrals: Martina Harris MD [Primary Care Provider] - 1-2 days Time of Disposition: 14:04
[2017-02-15] MEDS: SODIUM CHLORIDE 0.9% 1,000 ML IV SCH (14:58)
[2017-02-15 16:43] LABS: CH 31.7; CHCM 31.9; HCT 31.6 % (34.0-46.0); HDW 2.78; HGB 10.5 gm/dL (11.4-16.0); MCV 99.9 fL (80.0-100.0); Macrocytosis Slight; Mean Platelet Volume 7.7; RBC 3.17 m/uL (3.80-5.40); RDW 14.9 % (11.5-15.5); WBC 8.7 k/uL (3.8-10.6)
[2017-02-15 17:26] LABS: Glucose,Whole Blood 107 mg/dL (75-99)
[2017-02-15] MEDS: INSULIN LISPRO (humaLOG) 300 UNIT/3 ML VIAL SQ SCH ×2 (17:50→21:51)
[2017-02-15] MEDS: traMADol 50 MG TAB PO PRN (20:11)
[2017-02-15] MEDS: METOPROLOL TARTRATE 25 MG TAB PO SCH (20:13)
[2017-02-15] MEDS: MAGNESIUM OXIDE 400 MG TAB PO SCH (20:13)
[2017-02-15] MEDS: busPIRone HCl 10 MG TAB PO SCH (20:14)
[2017-02-15] MEDS: ATORVASTATIN 10 MG TAB PO SCH (20:14)
[2017-02-15] MEDS: HEPARIN SODIUM,PORCINE 5,000 UNIT/ML 1 ML VIAL SQ SCH (20:14)
[2017-02-15] MEDS: FAMOTIDINE 20 MG TAB PO SCH (20:14)
[2017-02-15 20:52] LABS: Glucose,Whole Blood 153 mg/dL (75-99)
--- NOTE | 2017-02-15 21:10 | HP ---
HISTORY AND PHYSICAL DATE OF SERVICE: 02/15/2017 CHIEF COMPLAINTS: Dehydration, weakness and cough. HISTORY OF PRESENT ILLNESS: This 72-year-old woman with a past medical history of multiple medical problems, including CAD, history of diabetes mellitus and DVT, history of hypertension, myocardial infarction, being followed by Dr. Harris in the outpatient setting, was complaining cough for several days. The patient became increasingly weak and tired. The patient also had some diarrhea. Patient came to [facility] and was admitted for further evaluation and treatment. Multifocal pneumonia was suspected. The patient also had features of UTI. There is no history of any fever, rigors or chills. No history of headache, loss of consciousness, seizures. Creatinine is 1.19. PAST MEDICAL HISTORY: 1. History of CAD. 2. CVA, TIA. 3. Diabetes mellitus. 4. DVT. GERD. 5. Hypertension. 6. Hyperlipidemia. 7. History of myocardial infarction. HOME MEDICATIONS: 1. Buspirone 10 mg p.o. b.i.d. 2. Sodium bicarb 650 mg p.o. daily. 3. Simvastatin 20 mg at bedtime. 4. Omeprazole 20 mg daily. 5. Metoprolol 25 mg at bedtime. 6. Magnesium 500 mg p.o. b.i.d. 7. Losartan 25 mg p.o. daily. 8. Imdur 20 mg p.o. daily. 9. Amaryl 1 mg p.o. daily. 10.Folic acid 0.8 mg daily. 11.Iron sulfate 325 mg at bedtime. 12.Vitamin B12 1000 mcg p.o. daily. 13.Aspirin 325 mg daily. ALLERGIES: NONE. FAMILY HISTORY: History of diabetes mellitus in the family. SOCIAL HISTORY: Previous history of smoking. No current smoking or alcohol intake. REVIEW OF SYSTEMS: ENT: No diminished hearing. No diminished vision. CARDIOVASCULAR: No angina, palpitations. RESPIRATORY SYSTEM: No cough, hemoptysis. GI: No nausea, vomiting. : No dysuria. NERVOUS SYSTEM: No numbness, weakness. ALLERGY/IMMUNOLOGY: Negative musculoskeletal as mentioned earlier. HEMATOLOGY/ONCOLOGY: No asthma, hayfever. MUSCULOSKELETAL: As mentioned earlier. HEMATOLOGY/ONCOLOGY: No history of anemia. ENDOCRINE: Diabetes mellitus. CONSTITUTIONAL: As mentioned earlier. DERMATOLOGY: Negative. RHEUMATOLOGY: Negative. PSYCHIATRY: As mentioned earlier. PHYSICAL EXAMINATION: Patient is alert and oriented x3. Pulse 74, blood pressure 155/71, respiration 18, temperature 99 degrees, pulse ox 94% room air. HEENT: Conjunctivae normal. NECK: No jugular venous distention. CARDIOVASCULAR: S1, S2 muffled. RESPIRATORY: Breath sounds diminished at the bases. A few scattered rhonchi and crackles. ABDOMEN: Soft, nontender. No mass palpable. LEGS: No edema. No swelling. NERVOUS SYSTEM: Higher functions as mentioned earlier. Moves all 4 limbs. No focal motor or sensory deficit. LYMPHATICS: No lymph node palpable in neck, axillae or groin. SKIN: No ulcer, rash, bleeding. neck tension Cardizem asthma blood pressure in the bases. A few scattered LABS: WBC 8.6, hemoglobin is 10.5. Sodium 136, creatinine 1.1. UA noted. Chest x-ray reviewed personally. ASSESSMENT: 1. Possible acute right lower lobe pneumonia, community-acquired. 2. Possible urinary tract infection, present on admission. 3. Anemia. 4. Thrombocytopenia. 5. Increased creatinine with possible acute renal failure, mild, secondary to renal failure and dehydration. 6. History of coronary artery disease. 7. History cerebrovascular accident. 8. Diabetes mellitus, type 2. 9. History of deep vein thrombosis. 10.Gastroesophageal reflux disease. 11.Hypertension. 12.Hyperlipidemia. 13.History of myocardial infarction. 14.History of appendectomy. RECOMMENDATIONS AND DISCUSSION: I recommend to continue current medications, continue symptomatic treatment. I recommend broad-spectrum IV antibiotics. Obtain cultures. Pulmonary consultation. Resume the home medications. Guarded prognosis because of multiple complex medical issues, which I discussed at length with the patient. Further recommendations to follow. Repeat labs will be ordered as well. See orders for further details. Prognosis guarded. MMODL / IJN: [id number] /
[2017-02-16 07:50] LABS: Glucose,Whole Blood 119 mg/dL (75-99)
[2017-02-16] MEDS: INSULIN LISPRO (humaLOG) 300 UNIT/3 ML VIAL SQ SCH ×4 (08:19→21:31)
[2017-02-16] MEDS: PANTOPRAZOLE 40 MG TABLET PO SCH (08:20)
[2017-02-16] MEDS: busPIRone HCl 10 MG TAB PO SCH ×2 (08:20→21:31)
[2017-02-16] MEDS: ASPIRIN 325 MG TAB PO SCH (08:20)
[2017-02-16] MEDS: FAMOTIDINE 20 MG TAB PO SCH (08:20)
[2017-02-16] MEDS: HEPARIN SODIUM,PORCINE 5,000 UNIT/ML 1 ML VIAL SQ SCH ×2 (08:21→21:32)
[2017-02-16] MEDS: GLIMEPIRIDE 1 MG TAB PO SCH (08:21)
[2017-02-16] MEDS: MAGNESIUM OXIDE 400 MG TAB PO SCH ×2 (08:21→21:31)
[2017-02-16] MEDS: SODIUM BICARBONATE TAB 650 MG TAB PO SCH (08:21)
[2017-02-16] MEDS: traMADol 50 MG TAB PO PRN ×2 (08:32→21:30)
[2017-02-16 09:52] LABS: Basophils % (A) 0 %; CH 32.1; CHCM 33.4; Eosinophils % (A) 1 %; HCT 31.2 % (34.0-46.0); HDW 2.91; HGB 10.2 gm/dL (11.4-16.0); Luc # (Auto) 0.12; Luc % (Auto) 2; Lymphocytes # (A) 0.9 k/uL (1.0-4.8); Lymphocytes % (A) 12 %; MCH 31.7 pg (25.0-35.0); MCHC 32.7 g/dL (31.0-37.0); MCV 96.8 fL (80.0-100.0); Monocytes # (A) 0.4 k/uL (0-1.0); Monocytes % (A) 5 %; Neutrophils # (A) 6.4 k/uL (1.3-7.7); Neutrophils % (A) 81 %; RBC 3.22 m/uL (3.80-5.40); WBC 7.9 k/uL (3.8-10.6); WBC (Perox) 7.92
[2017-02-16 10:24] LABS: Calcium 8.4 mg/dL (8.4-10.2); Potassium 3.9 mmol/L (3.5-5.1)
[2017-02-16] MEDS: FOLIC ACID 1 MG TAB PO SCH (11:11)
[2017-02-16] MEDS: ISOSORBIDE MONONITRATE 20 MG TAB PO SCH (11:11)
[2017-02-16] MEDS: LOSARTAN 25 MG TAB PO SCH (11:11)
[2017-02-16] MEDS: CYANOCOBALAMIN 500 MCG TAB PO SCH (11:11)
[2017-02-16] MEDS: IPRATROPIUM-ALBUTEROL 3 ML NEB INHALATION SCH ×2 (11:35→19:12)
--- NOTE | 2017-02-16 12:15 | P.CNPUL ---
History of Present Illness Consult date: 02/16/17 Requesting physician: Tra Aponte Reason for consult: pneumonia Chief complaint: shortness of breath History of present illness: This is a 72-year-old female patient being seen examined and evaluated today on the [facility] unit. Patient came in to the emergency room yesterday with shortness of breath and a productive cough that had been getting worse over the last 2-3 days. Patient did not take any medications for her symptoms at home. The patient felt very weak. She has a colostomy and noted she had frequent liquidy stools in her colostomy bag. Patient felt as if she was becoming dehydrated. Patient is known to have a past medical history for coronary arteries. 2 sees, rectal cancel her, CVA, diabetes mellitus, DVT, GERD hyperlipidemia, hypertension, myocardial infarction, and was a previous smoker. The patient did stop smoking in 1994 when she had her myocardial infarction. Upon examination the patient's resting up in bed on room air with family at bedside. She states she does get short of breath with any exertion and/or activity. She feels weak as well. She does have a congested cough however is unable to bring up sputum due to the thickness at this time. She is afebrile. Review of Systems 14 point review of systems was completed and is negative unless noted above in the HPI. Past Medical History Past Medical History: Coronary Artery Disease (CAD), Cancer, CVA/TIA, Diabetes Mellitus, Deep Vein Thrombosis (DVT), GERD/Reflux, Hyperlipidemia, Hypertension , Myocardial Infarction ([place]), Osteoarthritis (OA), Vascular Disorder Additional Past Medical History / Comment(s): tia, chronic back pain, rectal cancer 2008(had sx, chemo, radiation), "bad circulation", emphysema,uti, had a pne vaccine after age 63-not sure of exact date. Last Myocardial Infarction Date:: 1994 History of Any Multi-Drug Resistant Organisms: None Reported Past Surgical History: Appendectomy, Bladder Surgery, Bowel Resection, Orthopedic Surgery, Tubal Ligation Additional Past Surgical History / Comment(s): colonoscopy, bowel resection w/ colostomy. stated has 3 colostmy sx. rt great toe amp, rt hand trigger finger sx , blood clots removed rt leg 2008, rt carpal tunnel release, Past Anesthesia/Blood Transfusion Reactions: No Reported Reaction Additional Past Anesthesia/Blood Transfusion Reaction / Comment(s): had blood transfusion-no reaction Smoking Status: Former smoker - Past Family History Mother Family Medical History: Diabetes Mellitus Father Family Medical History: Myocardial Infarction ([place]) Medications and Allergies Home Medications Medication Instructions Recorded Confirmed Type Aspirin 325 mg PO DAILY 10/30/16 02/15/17 History Cyanocobalamin (Vitamin B-12) 1,000 mcg PO DAILY 10/30/16 02/15/17 History [Vitamin B-12] Ferrous Sulfate [Iron (65 MG 325 mg PO HS 10/30/16 02/15/17 History Elemental)] Glimepiride [Amaryl] 1 mg PO DAILY 10/30/16 02/15/17 History Isosorbide Mononitrate 20 mg PO DAILY 10/30/16 02/15/17 History Losartan Potassium 25 mg PO DAILY 10/30/16 02/15/17 History Magnesium Oxide [Magnesium] 500 mg PO BID 10/30/16 02/15/17 History Metoprolol Tartrate 25 mg PO HS 10/30/16 02/15/17 History Omeprazole 20 mg PO DAILY 10/30/16 02/15/17 History Simvastatin 20 mg PO HS 10/30/16 02/15/17 History Sodium Bicarbonate Tab 650 mg PO DAILY 10/30/16 02/15/17 History busPIRone HCL 10 mg PO BID 10/30/16 02/15/17 History Folic Acid 0.8 mg PO DAILY 02/15/17 02/15/17 History Allergies Allergy/AdvReac Type Severity Reaction Status Date / Time No Known Allergies Allergy Verified 02/15/17 10:03 Physical Exam Vitals: Vital Signs Temp Pulse Pulse Resp BP BP Pulse Ox 02/16/17 11:51 76 02/16/17 11:36 72 02/16/17 07:00 98.1 F 81 16 129/68 95 02/16/17 01:13 97.7 F 02/15/17 23:00 101.4 F H 75 20 139/64 96 02/15/17 16:44 96.8 F L 79 20 140/71 98 02/15/17 16:08 99 F 74 18 155/71 94 L 02/15/17 14:58 98.4 F 71 18 155/71 95 02/15/17 14:25 97.8 F 79 18 151/67 95 02/15/17 12:54 100.1 F H 87 18 136/63 97 02/15/17 12:10 101.1 F H 88 16 136/64 95 Intake and Output 02/15/17 02/16/17 02/16/17 22:59 06:59 14:59 Intake Total 1999 Balance 1999 Intake: Amount of Fluid Infused ( 2000 ml) Other: # Voids 1 1 GENERAL EXAM: Alert, active, comfortable in no apparent distress. HEAD: Normocephalic. EYES: Normal reaction of pupils, equal size. NOSE: Clear with pink turbinates. THROAT: No erythema or exudates. NECK: No masses, no JVD. CHEST: No chest wall deformity. LUNGS: Lung sounds noted to be coarse throughout with some faint expiratory wheezing noted as well. Basis diminished.. CVS: S1 and S2 normal with no audible mumurs, regular rhythm. ABDOMEN: No hepatosplenomegaly, normal bowel sounds, no guarding or rigidity. EXTREMITIES: No edema noted, pedal pulses palpable. SKIN: No rashes CENTRAL NERVOUS SYSTEM: No focal deficits, tone is normal in all 4 extremities. Results - Laboratory Findings CBC and BMP: 02/16/17 08:48 02/16/17 08:48 Abnormal lab findings: Abnormal Labs 02/15/17 02/15/17 02/15/17 10:40 10:40 12:55 RBC 3.17 L Hgb 10.5 L Hct 31.6 L Plt Count 132 L Lymphocytes # Sodium 136 L Chloride Carbon Dioxide 21 L BUN 20 H Creatinine 1.19 H Glucose 131 H POC Glucose (mg/dL) Urine Appearance Cloudy H Urine Protein 2+ H Urine Blood Small H Ur Leukocyte Esterase Large H Urine WBC >182 H Urine WBC Clumps Few H Urine Bacteria Occasional H Urine Mucus Rare H 02/15/17 02/15/17 02/16/17 17:20 20:48 07:45 RBC Hgb Hct Plt Count Lymphocytes # Sodium Chloride Carbon Dioxide BUN Creatinine Glucose POC Glucose (mg/dL) 107 H 153 H 119 H Urine Appearance Urine Protein Urine Blood Ur Leukocyte Esterase Urine WBC Urine WBC Clumps Urine Bacteria Urine Mucus 02/16/17 02/16/17 08:48 08:48 RBC 3.22 L Hgb 10.2 L Hct 31.2 L Plt Count 127 L Lymphocytes # 0.9 L Sodium Chloride 108 H Carbon Dioxide 18 L BUN Creatinine 1.10 H Glucose 162 H POC Glucose (mg/dL) Urine Appearance Urine Protein Urine Blood Ur Leukocyte Esterase Urine WBC Urine WBC Clumps Urine Bacteria Urine Mucus - Diagnostic Findings Chest x-ray: report reviewed, image reviewed Assessment and Plan Plan: Assessment Community-acquired right lower lobe pneumonia suspect mixed bacterial Urinary tract infection present on admission Dehydration History of CAD History of CVA Diabetes mellitus type 2 History of DVTs Hypertension Hyperlipidemia History of [place] Plan Medications have been reviewed and will be continued as ordered. Add nebulizer treatments in the forms of DuoNeb and budesonide. Obtain sputum culture. Continue with pulmonary hygiene, coughing and deep breathing exercises, and supportive care. Supplemental oxygen to maintain oxygen saturations of 92% or better. GI and DVT prophylaxis. We will continue to monitor labs/results and adjust treatment as necessary. Further recommendations pending. I performed an examination of the patient and discussed their management with the nurse practitioner. I have reviewed the nurse practitioner's note and agree with the documented findings and plan of care.
[2017-02-16 13:02] LABS: Glucose,Whole Blood 143 mg/dL (75-99)
[2017-02-16] MEDS: SODIUM CHLORIDE 0.9% 1,000 ML IV SCH (14:35)
[2017-02-16 17:12] LABS: Glucose,Whole Blood 140 mg/dL (75-99)
--- NOTE | 2017-02-16 17:37 | P.PN ---
Subjective Date of service 02/16/2017. Progress note being dictated for Dr. Aponte. Interval history: This a 72-year-old female admitted with possible acute right lower lobe pneumonia, possible UTI, acute renal failure and multiple other medical issues. Maintained on broad-spectrum IV antibiotics, nebulized bronchodilators with breathing improving. T-max 101.4, WBC within normal limits. Renal function improving. Pulmonary blood culture negative. Urine culture pending. Objective - Vital Signs Vital signs: Vital Signs Temp 96.3 F L 02/16/17 15:00 Pulse 70 02/16/17 15:00 Resp 16 02/16/17 15:00 BP 110/47 02/16/17 15:00 Pulse Ox 97 02/16/17 15:00 Intake & Output 02/15/17 02/16/17 02/16/17 18:59 06:59 18:59 Intake Total 1999 Balance 1999 Weight 70.307 kg Intake: Amount of Fluid Infused ( 2000 ml) Other: # Voids 1 3 - Exam PHYSICAL EXAM: VITAL SIGNS: As above GENERAL: Sitting up at side of bed, no acute distress HEENT: Conjunctivae normal. eyes normal. NECK: No JVD. No thyroid enlargement. No LNs CARDIOVASCULAR: S1, S2 muffled. No murmur RESPIRATION: Breath sounds diminished in the bases. Occasional scattered rhonchi or crackles. ABDOMEN: Soft, nontender . No guarding. no masses palpable. .Bowel sounds heard. LEGS: No edema. no swelling PSYCHIATRY: Alert and oriented -3, mood and affect normal. NERVOUS SYSTEM: Cranial N 2-12 grossly normal. Moves all 4 limbs. Diffuse weakness No focal deficits. No sensory deficit. Skin: no ulcer no rash Joints: No active swelling. No inflammation. Lymphatic system. No LN neck axilla or groin. - Labs CBC & Chem 7: 02/16/17 08:48 02/16/17 08:48 Labs: Abnormal Lab Results - Last 24 Hours (Table) 02/15/17 02/16/17 02/16/17 Range/Units 20:48 07:45 08:48 RBC 3.22 L (3.80-5.40) m/uL Hgb 10.2 L (11.4-16.0) gm/dL Hct 31.2 L (34.0-46.0) % Plt Count 127 L (150-450) k/uL Lymphocytes # 0.9 L (1.0-4.8) k/uL Chloride (98-107) mmol/L Carbon Dioxide (22-30) mmol/L Creatinine (0.52-1.04) mg/dL Glucose (74-99) mg/dL POC Glucose (mg/dL) 153 H 119 H (75-99) mg/dL 02/16/17 02/16/17 02/16/17 Range/Units 08:48 13:00 17:09 RBC (3.80-5.40) m/uL Hgb (11.4-16.0) gm/dL Hct (34.0-46.0) % Plt Count (150-450) k/uL Lymphocytes # (1.0-4.8) k/uL Chloride 108 H (98-107) mmol/L Carbon Dioxide 18 L (22-30) mmol/L Creatinine 1.10 H (0.52-1.04) mg/dL Glucose 162 H (74-99) mg/dL POC Glucose (mg/dL) 143 H 140 H (75-99) mg/dL Microbiology - Last 24 Hours (Table) 02/15/17 14:10 Blood Culture - Preliminary Blood No Growth after 24 hours 02/15/17 21:30 Urine Culture - Preliminary Urine,Voided Assessment and Plan Plan: 1. Possible acute right lower lobe pneumonia, community-acquired 2. Possible acute UTI, present on admission 3. Anemia 4. Thrombocytopenia 5. Acute renal failure secondary to dehydration 6. CAD, history of [place] 7. Diabetes mellitus type 2 8. Gastroesophageal reflux disease. Plan: Continue on current medication regime ,monitoring and symptomatic treatment. Follow cultures closely. Increase ambulation as tolerated. Discharge planning in progress within the next 48 hours.
[2017-02-16] MEDS: BUDESONIDE 0.5 MG/2 ML NEBU INHALATION SCH (19:12)
[2017-02-16] MEDS: METOPROLOL TARTRATE 25 MG TAB PO SCH (21:31)
[2017-02-16] MEDS: ATORVASTATIN 10 MG TAB PO SCH (21:31)
[2017-02-16 21:44] LABS: Glucose,Whole Blood 110 mg/dL (75-99)
[2017-02-17] MEDS: IPRATROPIUM-ALBUTEROL 3 ML NEB INHALATION SCH ×3 (07:15→19:25)
[2017-02-17] MEDS: BUDESONIDE 0.5 MG/2 ML NEBU INHALATION SCH ×2 (07:16→19:25)
[2017-02-17 07:28] LABS: Glucose,Whole Blood 117 mg/dL (75-99)
[2017-02-17] MEDS: INSULIN LISPRO (humaLOG) 300 UNIT/3 ML VIAL SQ SCH ×4 (08:06→22:25)
[2017-02-17] MEDS: ISOSORBIDE MONONITRATE 20 MG TAB PO SCH (08:08)
[2017-02-17] MEDS: HEPARIN SODIUM,PORCINE 5,000 UNIT/ML 1 ML VIAL SQ SCH ×2 (08:08→22:20)
[2017-02-17] MEDS: PANTOPRAZOLE 40 MG TABLET PO SCH (08:08)
[2017-02-17] MEDS: LOSARTAN 25 MG TAB PO SCH (08:08)
[2017-02-17] MEDS: busPIRone HCl 10 MG TAB PO SCH ×2 (08:08→22:21)
[2017-02-17] MEDS: SODIUM BICARBONATE TAB 650 MG TAB PO SCH (08:08)
[2017-02-17] MEDS: MAGNESIUM OXIDE 400 MG TAB PO SCH ×2 (08:08→22:22)
[2017-02-17] MEDS: ASPIRIN 325 MG TAB PO SCH (08:08)
[2017-02-17] MEDS: GLIMEPIRIDE 1 MG TAB PO SCH (08:08)
[2017-02-17] MEDS: traMADol 50 MG TAB PO PRN ×2 (08:12→22:30)
[2017-02-17 09:27] LABS: Basophils % (A) 0 %; CH 31.5; CHCM 32.7; Eosinophils # (A) 0.1 k/uL (0-0.7); Eosinophils % (A) 2 %; HCT 29.8 % (34.0-46.0); HGB 9.8 gm/dL (11.4-16.0); Luc # (Auto) 0.15; Luc % (Auto) 2; Lymphocytes # (A) 1.6 k/uL (1.0-4.8); Lymphocytes % (A) 22 %; MCH 31.9 pg (25.0-35.0); MCHC 32.8 g/dL (31.0-37.0); MCV 97.2 fL (80.0-100.0); Mean Platelet Volume 7.2; Monocytes # (A) 0.4 k/uL (0-1.0); Monocytes % (A) 6 %; Neutrophils # (A) 4.9 k/uL (1.3-7.7); Neutrophils % (A) 68 %; RBC 3.07 m/uL (3.80-5.40); RDW 14.9 % (11.5-15.5); WBC 7.2 k/uL (3.8-10.6); WBC (Perox) 7.77
[2017-02-17 09:48] LABS: Calcium 8.6 mg/dL (8.4-10.2)
[2017-02-17 11:28] LABS: Glucose,Whole Blood 232 mg/dL (75-99)
--- NOTE | 2017-02-17 11:41 | P.PN ---
Subjective 02/17/17- patient being seen examined and evaluated today on the [facility] unit. Upon examination the patient's resting up in bed on room air. She states her shortness of breath continues however has decreased in severity. She continues to have a congested cough. However her cough was not effective in bringing up any of the sputum due to thickness. We still need to obtain a sputum sample. She has been using her incentive spirometer and pulling volumes of approximately 1500. She is afebrile, no overnight events. No further complaints. 02/16/17- This is a 72-year-old female patient being seen examined and evaluated today on the [facility] unit. Patient came in to the emergency room yesterday with shortness of breath and a productive cough that had been getting worse over the last 2-3 days. Patient did not take any medications for her symptoms at home. The patient felt very weak. She has a colostomy and noted she had frequent liquidy stools in her colostomy bag. Patient felt as if she was becoming dehydrated. Patient is known to have a past medical history for coronary arteries. 2 sees, rectal cancel her, CVA, diabetes mellitus, DVT, GERD hyperlipidemia, hypertension, myocardial infarction, and was a previous smoker. The patient did stop smoking in 1994 when she had her myocardial infarction. Upon examination the patient's resting up in bed on room air with family at bedside. She states she does get short of breath with any exertion and/or activity. She feels weak as well. She does have a congested cough however is unable to bring up sputum due to the thickness at this time. She is afebrile. Objective - Vital Signs Vital signs: Vital Signs Temp 97.0 F L 02/17/17 07:00 Pulse 76 02/17/17 07:34 Resp 16 02/17/17 07:00 BP 122/63 02/17/17 07:00 Pulse Ox 97 02/17/17 07:00 Intake & Output 02/16/17 02/17/17 02/17/17 18:59 06:59 18:59 Intake Total 400 Balance 400 Intake: Oral 400 Other: # Voids 3 1 - Exam GENERAL EXAM: Alert, active, comfortable in no apparent distress. HEAD: Normocephalic. EYES: Normal reaction of pupils, equal size. NOSE: Clear with pink turbinates. THROAT: No erythema or exudates. NECK: No masses, no JVD. CHEST: No chest wall deformity. LUNGS: Lung sounds noted to be coarse throughout with some faint expiratory wheezing noted as well. Basis diminished.. CVS: S1 and S2 normal with no audible mumurs, regular rhythm. ABDOMEN: No hepatosplenomegaly, normal bowel sounds, no guarding or rigidity. EXTREMITIES: No edema noted, pedal pulses palpable. SKIN: No rashes CENTRAL NERVOUS SYSTEM: No focal deficits, tone is normal in all 4 extremities. - Labs CBC & Chem 7: 02/17/17 07:41 02/17/17 07:41 Labs: Abnormal Lab Results - Last 24 Hours (Table) 02/16/17 02/16/17 02/16/17 Range/Units 13:00 17:09 21:23 RBC (3.80-5.40) m/uL Hgb (11.4-16.0) gm/dL Hct (34.0-46.0) % Plt Count (150-450) k/uL Chloride (98-107) mmol/L Carbon Dioxide (22-30) mmol/L Creatinine (0.52-1.04) mg/dL Glucose (74-99) mg/dL POC Glucose (mg/dL) 143 H 140 H 110 H (75-99) mg/dL 02/17/17 02/17/17 02/17/17 Range/Units 07:24 07:41 07:41 RBC 3.07 L (3.80-5.40) m/uL Hgb 9.8 L (11.4-16.0) gm/dL Hct 29.8 L (34.0-46.0) % Plt Count 135 L (150-450) k/uL Chloride 108 H (98-107) mmol/L Carbon Dioxide 20 L (22-30) mmol/L Creatinine 1.17 H (0.52-1.04) mg/dL Glucose 114 H (74-99) mg/dL POC Glucose (mg/dL) 117 H (75-99) mg/dL 02/17/17 Range/Units 11:25 RBC (3.80-5.40) m/uL Hgb (11.4-16.0) gm/dL Hct (34.0-46.0) % Plt Count (150-450) k/uL Chloride (98-107) mmol/L Carbon Dioxide (22-30) mmol/L Creatinine (0.52-1.04) mg/dL Glucose (74-99) mg/dL POC Glucose (mg/dL) 232 H (75-99) mg/dL Microbiology - Last 24 Hours (Table) 02/15/17 21:30 Urine Culture - Final Urine,Voided 02/15/17 14:10 Blood Culture - Preliminary Blood No Growth after 24 hours Assessment and Plan Plan: Assessment Community-acquired right lower lobe pneumonia suspect mixed bacterial Urinary tract infection present on admission Dehydration History of CAD History of CVA Diabetes mellitus type 2 History of DVTs Hypertension Hyperlipidemia History of [place] Plan Medications have been reviewed and will be continued as ordered. We will add Mucinex to help with secretions. nebulizer treatments in the forms of DuoNeb and budesonide. Obtain sputum culture. Continue with pulmonary hygiene, coughing and deep breathing exercises, and supportive care. Supplemental oxygen to maintain oxygen saturations of 92% or better. GI and DVT prophylaxis. We will continue to monitor labs/results and adjust treatment as necessary. Further recommendations pending. I performed an examination of the patient and discussed their management with the nurse practitioner. I have reviewed the nurse practitioner's note and agree with the documented findings and plan of care.
[2017-02-17] MEDS: FOLIC ACID 1 MG TAB PO SCH (11:48)
[2017-02-17] MEDS: guaiFENesin 600 MG TABLET.ER PO SCH ×2 (11:48→22:20)
[2017-02-17] MEDS: CYANOCOBALAMIN 500 MCG TAB PO SCH (11:48)
--- NOTE | 2017-02-17 14:39 | P.PN ---
Subjective Progress note being dictated for Dr. Aponte. 02/16/2017.Interval history: This a 72-year-old female admitted with possible acute right lower lobe pneumonia, possible UTI, acute renal failure and multiple other medical issues. Maintained on broad-spectrum IV antibiotics, nebulized bronchodilators with breathing improving. T-max 101.4, WBC within normal limits. Renal function improving. Pulmonary blood culture negative. Urine culture pending. 02/17/2017. Maintained on Rocephin, nebulized bronchodilators, breathing improving, maintaining O2 sats of 97% on room air. Loose nonproductive cough. Afebrile. Creatinine 1.17. Urine culture negative. Preliminary blood culture remains negative. Objective - Vital Signs Vital signs: Vital Signs Temp 97.0 F L 02/17/17 07:00 Pulse 76 02/17/17 12:57 Resp 16 02/17/17 07:00 BP 122/63 02/17/17 07:00 Pulse Ox 97 02/17/17 07:00 Intake & Output 02/16/17 02/17/17 02/17/17 18:59 06:59 18:59 Intake Total 400 Balance 400 Intake: Oral 400 Other: # Voids 3 1 - Exam PHYSICAL EXAM: VITAL SIGNS: As above GENERAL: Sitting up at side of bed, no acute distress HEENT: Conjunctivae normal. eyes normal. NECK: No JVD. No thyroid enlargement. No LNs CARDIOVASCULAR: S1, S2 muffled. No murmur RESPIRATION: Breath sounds diminished in the bases. Occasional scattered rhonchi, no crackles. Occasional fine expiratory wheezing ABDOMEN: Soft, nontender . No guarding. no masses palpable. .Bowel sounds heard. LEGS: No edema. no swelling PSYCHIATRY: Alert and oriented -3, mood and affect normal. NERVOUS SYSTEM: Cranial N 2-12 grossly normal. Moves all 4 limbs. Diffuse weakness No focal deficits. No sensory deficit. Skin: no ulcer no rash Joints: No active swelling. No inflammation. Lymphatic system. No LN neck axilla or groin. - Labs CBC & Chem 7: 02/17/17 07:41 02/17/17 07:41 Labs: Abnormal Lab Results - Last 24 Hours (Table) 02/16/17 02/16/17 02/17/17 Range/Units 17:09 21:23 07:24 RBC (3.80-5.40) m/uL Hgb (11.4-16.0) gm/dL Hct (34.0-46.0) % Plt Count (150-450) k/uL Chloride (98-107) mmol/L Carbon Dioxide (22-30) mmol/L Creatinine (0.52-1.04) mg/dL Glucose (74-99) mg/dL POC Glucose (mg/dL) 140 H 110 H 117 H (75-99) mg/dL 02/17/17 02/17/17 02/17/17 Range/Units 07:41 07:41 11:25 RBC 3.07 L (3.80-5.40) m/uL Hgb 9.8 L (11.4-16.0) gm/dL Hct 29.8 L (34.0-46.0) % Plt Count 135 L (150-450) k/uL Chloride 108 H (98-107) mmol/L Carbon Dioxide 20 L (22-30) mmol/L Creatinine 1.17 H (0.52-1.04) mg/dL Glucose 114 H (74-99) mg/dL POC Glucose (mg/dL) 232 H (75-99) mg/dL Microbiology - Last 24 Hours (Table) 02/15/17 21:30 Urine Culture - Final Urine,Voided 02/15/17 14:10 Blood Culture - Preliminary Blood No Growth after 24 hours Assessment and Plan Plan: 1. Possible acute right lower lobe pneumonia, community-acquired 2. Possible acute UTI, present on admission, culture negative. 3. Anemia 4. Thrombocytopenia 5. Acute renal failure secondary to dehydration 6. CAD, history of [place] 7. Diabetes mellitus type 2 8. Gastroesophageal reflux disease. Plan: Continue on current medication regime ,monitoring and symptomatic treatment. Maintain antibiotics, nebulized bronchodilators. Increase ambulation as tolerated. Discharge planning in progress for tomorrow. Follow closely with pulmonary. The impression and plan of care has been dictated as directed. : I performed a H&P examination of this patient and discussed the same with the dictator. I agree with the dictator's note. Any additional findings/opinions/ etc. will be noted.
[2017-02-17] MEDS: SODIUM CHLORIDE 0.9% 1,000 ML IV SCH (15:34)
[2017-02-17 17:19] LABS: Glucose,Whole Blood 74 mg/dL (75-99)
[2017-02-17 21:21] LABS: Glucose,Whole Blood 144 mg/dL (75-99)
[2017-02-17] MEDS: METOPROLOL TARTRATE 25 MG TAB PO SCH (22:21)
[2017-02-17] MEDS: ATORVASTATIN 10 MG TAB PO SCH (22:21)
[2017-02-18 07:33] LABS: Glucose,Whole Blood 99 mg/dL (75-99)
[2017-02-18] MEDS: INSULIN LISPRO (humaLOG) 300 UNIT/3 ML VIAL SQ SCH ×2 (08:23→13:01)
[2017-02-18] MEDS: ASPIRIN 325 MG TAB PO SCH (08:23)
[2017-02-18] MEDS: busPIRone HCl 10 MG TAB PO SCH (08:23)
[2017-02-18] MEDS: PANTOPRAZOLE 40 MG TABLET PO SCH (08:23)
[2017-02-18] MEDS: SODIUM BICARBONATE TAB 650 MG TAB PO SCH (08:24)
[2017-02-18] MEDS: HEPARIN SODIUM,PORCINE 5,000 UNIT/ML 1 ML VIAL SQ SCH (08:24)
[2017-02-18] MEDS: ISOSORBIDE MONONITRATE 20 MG TAB PO SCH (08:24)
[2017-02-18] MEDS: MAGNESIUM OXIDE 400 MG TAB PO SCH (08:24)
[2017-02-18] MEDS: guaiFENesin 600 MG TABLET.ER PO SCH (08:24)
[2017-02-18] MEDS: GLIMEPIRIDE 1 MG TAB PO SCH (08:24)
[2017-02-18] MEDS: LOSARTAN 25 MG TAB PO SCH (08:24)
[2017-02-18] MEDS: traMADol 50 MG TAB PO PRN (08:29)
[2017-02-18 08:32] LABS: Basophils % (A) 0 %; CH 31.8; CHCM 32.7; Eosinophils # (A) 0.2 k/uL (0-0.7); Eosinophils % (A) 4 %; HCT 30.7 % (34.0-46.0); HDW 3.01; Luc # (Auto) 0.11; Luc % (Auto) 2; Lymphocytes # (A) 0.9 k/uL (1.0-4.8); Lymphocytes % (A) 15 %; MCH 31.8 pg (25.0-35.0); MCHC 32.5 g/dL (31.0-37.0); MCV 97.8 fL (80.0-100.0); Mean Platelet Volume 7.2; Monocytes # (A) 0.3 k/uL (0-1.0); Monocytes % (A) 5 %; Neutrophils # (A) 4.6 k/uL (1.3-7.7); Neutrophils % (A) 74 %; RBC 3.14 m/uL (3.80-5.40); RDW 14.7 % (11.5-15.5); WBC 6.2 k/uL (3.8-10.6)
[2017-02-18 08:43] VITALS: BP 131/64; RESP 19; TEMP 98.6
[2017-02-18 08:51] LABS: Calcium 8.6 mg/dL (8.4-10.2); Potassium 4.2 mmol/L (3.5-5.1)
[2017-02-18] MEDS: BUDESONIDE 0.5 MG/2 ML NEBU INHALATION SCH (10:06)
--- NOTE | 2017-02-18 10:34 | P.PN ---
Subjective 02/18/17- patient is being seen examined and evaluated today on the medical surgical unit. Patient continues to have occasional shortness of breath with exertion however it has significantly improved. Her congested cough has decreased as well. All of the reports been reviewed. Patient is being worked up for potential discharge today. Patient continues to utilize incentive spirometer. She is afebrile, no overnight events. No further complaints. 02/17/17- patient being seen examined and evaluated today on the [facility] unit. Upon examination the patient's resting up in bed on room air. She states her shortness of breath continues however has decreased in severity. She continues to have a congested cough. However her cough was not effective in bringing up any of the sputum due to thickness. We still need to obtain a sputum sample. She has been using her incentive spirometer and pulling volumes of approximately 1500. She is afebrile, no overnight events. No further complaints. 02/16/17- This is a 72-year-old female patient being seen examined and evaluated today on the [facility] unit. Patient came in to the emergency room yesterday with shortness of breath and a productive cough that had been getting worse over the last 2-3 days. Patient did not take any medications for her symptoms at home. The patient felt very weak. She has a colostomy and noted she had frequent liquidy stools in her colostomy bag. Patient felt as if she was becoming dehydrated. Patient is known to have a past medical history for coronary arteries. 2 sees, rectal cancel her, CVA, diabetes mellitus, DVT, GERD hyperlipidemia, hypertension, myocardial infarction, and was a previous smoker. The patient did stop smoking in 1994 when she had her myocardial infarction. Upon examination the patient's resting up in bed on room air with family at bedside. She states she does get short of breath with any exertion and/or activity. She feels weak as well. She does have a congested cough however is unable to bring up sputum due to the thickness at this time. She is afebrile. Objective - Vital Signs Vital signs: Vital Signs Temp 98.6 F 02/18/17 07:00 Pulse 76 02/18/17 07:00 Resp 19 02/18/17 07:00 BP 131/64 02/18/17 07:00 Pulse Ox 94 L 02/18/17 07:00 Intake & Output 02/17/17 02/18/17 02/18/17 18:59 06:59 18:59 Intake Total 400 Balance 400 Intake: Oral 400 Other: # Voids 4 1 # Bowel Movements 0 - Exam GENERAL EXAM: Alert, active, comfortable in no apparent distress. HEAD: Normocephalic. EYES: Normal reaction of pupils, equal size. NOSE: Clear with pink turbinates. THROAT: No erythema or exudates. NECK: No masses, no JVD. CHEST: No chest wall deformity. LUNGS: Lung sounds noted to be coarse throughout with some faint expiratory wheezing noted as well. Basis diminished.. CVS: S1 and S2 normal with no audible mumurs, regular rhythm. ABDOMEN: No hepatosplenomegaly, normal bowel sounds, no guarding or rigidity. EXTREMITIES: No edema noted, pedal pulses palpable. SKIN: No rashes CENTRAL NERVOUS SYSTEM: No focal deficits, tone is normal in all 4 extremities. - Labs CBC & Chem 7: 02/18/17 08:12 02/18/17 08:12 Labs: Abnormal Lab Results - Last 24 Hours (Table) 02/17/17 02/17/17 02/17/17 Range/Units 11:25 17:17 21:10 RBC (3.80-5.40) m/uL Hgb (11.4-16.0) gm/dL Hct (34.0-46.0) % Lymphocytes # (1.0-4.8) k/uL Chloride (98-107) mmol/L Carbon Dioxide (22-30) mmol/L Creatinine (0.52-1.04) mg/dL Glucose (74-99) mg/dL POC Glucose (mg/dL) 232 H 74 L 144 H (75-99) mg/dL 02/18/17 02/18/17 Range/Units 08:12 08:12 RBC 3.14 L (3.80-5.40) m/uL Hgb 10.0 L (11.4-16.0) gm/dL Hct 30.7 L (34.0-46.0) % Lymphocytes # 0.9 L (1.0-4.8) k/uL Chloride 109 H (98-107) mmol/L Carbon Dioxide 19 L (22-30) mmol/L Creatinine 1.16 H (0.52-1.04) mg/dL Glucose 109 H (74-99) mg/dL POC Glucose (mg/dL) (75-99) mg/dL Microbiology - Last 24 Hours (Table) 02/15/17 14:10 Blood Culture - Preliminary Blood No Growth after 48 hours Assessment and Plan Plan: Assessment Community-acquired right lower lobe pneumonia suspect mixed bacterial Urinary tract infection present on admission Dehydration History of CAD History of CVA Diabetes mellitus type 2 History of DVTs Hypertension Hyperlipidemia History of [place] Plan Patient could be cleared for discharge from pulmonary standpoint. She will need an outpatient pulmonary function test and a follow-up appointment. Medications have been reviewed and will be continued as ordered. A prescription has been provided for nebulizer treatments in the forms of DuoNeb and budesonide. A prescription for her nebulizer machine and has also been provided. Continue with pulmonary hygiene, coughing and deep breathing exercises, and supportive care. Supplemental oxygen to maintain oxygen saturations of 92% or better. GI and DVT prophylaxis. We will continue to monitor labs/results and adjust treatment as necessary. Further recommendations pending. I performed an examination of the patient and discussed their management with the nurse practitioner. I have reviewed the nurse practitioner's note and agree with the documented findings and plan of care.
[2017-02-18] MEDS: FOLIC ACID 1 MG TAB PO SCH (11:46)
[2017-02-18] MEDS: CYANOCOBALAMIN 500 MCG TAB PO SCH (11:46)
[2017-02-18 12:12] LABS: Glucose,Whole Blood 106 mg/dL (75-99)
[2017-02-18] MEDS: IPRATROPIUM-ALBUTEROL 3 ML NEB INHALATION SCH ×2 (12:27→13:37)
[2017-02-18 13:50] VITALS: PULSE 84
--- NOTE | 2017-02-18 16:35 | P.DS ---
Providers Date of admission: 02/15/17 14:04 Attending physician: Tra Aponte Consults: 02/15/17 18:10 Consult Physician Routine Consulting Provider: Chandana Lewis Consult Reason/Comments: pneumonia Do you want consulting provider notified?: Yes Primary care physician: Martina Harris [facility] Hospital Course: This 72-year-old woman with a past medical history multiple medical problems was admitted with acute right lower pneumonia committee acute. Patient treated with the antibiotics and bronchitis. Patient also had UTI. Patient improved significantly. Patient is keen on going home. On exam vitals stable. Cardio S1 and S2 normal. Respiratory system few scattered rhonchi. Abdomen soft nontender. No system no focal deficit. Final diagnosis 1. acute right lower lobe pneumonia community acquired. Improved. 2. Acute UTI present on admission the cultures negative. Improved. 3. Anemia of chronic disease. 4. Thrombocytopenia. 5. Acute renal failure secondary dehydration present on admission improved. 6. CAD history of myocardial infarction. 7. Diabetes was type II. 8. GERD Patient Condition at Discharge: Fair Plan - Discharge Summary New Discharge Prescriptions: New Budesonide [Pulmicort] 0.5 mg INHALATION BID #60 neb Ipratropium-Albuterol Nebulize [Duoneb 0.5 mg-3 mg/3 ml Soln] 3 ml INHALATION QID #120 neb Cefuroxime Axetil [Ceftin] 500 mg PO BID #10 tab Folic Acid 1 mg PO DAILY@1200 #30 tab traMADol HCl [Ultram] 50 mg PO Q6H PRN #20 tab PRN Reason: Moderate Pain guaiFENesin [Mucinex] 1,200 mg PO Q12HR tab Multivitamins, Thera [Multivitamin (formulary)] 1 tab PO DAILY #30 tablet Continue Ferrous Sulfate [Iron (65 MG Elemental)] 325 mg PO HS Cyanocobalamin (Vitamin B-12) [Vitamin B-12] 1,000 mcg PO DAILY Aspirin 325 mg PO DAILY Sodium Bicarbonate Tab 650 mg PO DAILY Simvastatin 20 mg PO HS Omeprazole 20 mg PO DAILY Metoprolol Tartrate 25 mg PO HS Losartan Potassium 25 mg PO DAILY Isosorbide Mononitrate 20 mg PO DAILY Glimepiride [Amaryl] 1 mg PO DAILY busPIRone HCL 10 mg PO BID Magnesium Oxide [Magnesium] 500 mg PO BID Folic Acid 0.8 mg PO DAILY Discharge Medication List Aspirin 325 mg PO DAILY 10/30/16 [History] Cyanocobalamin (Vitamin B-12) [Vitamin B-12] 1,000 mcg PO DAILY 10/30/16 [ History] Ferrous Sulfate [Iron (65 MG Elemental)] 325 mg PO HS 10/30/16 [History] Glimepiride [Amaryl] 1 mg PO DAILY 10/30/16 [History] Isosorbide Mononitrate 20 mg PO DAILY 10/30/16 [History] Losartan Potassium 25 mg PO DAILY 10/30/16 [History] Magnesium Oxide [Magnesium] 500 mg PO BID 10/30/16 [History] Metoprolol Tartrate 25 mg PO HS 10/30/16 [History] Omeprazole 20 mg PO DAILY 10/30/16 [History] Simvastatin 20 mg PO HS 10/30/16 [History] Sodium Bicarbonate Tab 650 mg PO DAILY 10/30/16 [History] busPIRone HCL 10 mg PO BID 10/30/16 [History] Folic Acid 0.8 mg PO DAILY 02/15/17 [History] Budesonide [Pulmicort] 0.5 mg INHALATION BID #60 neb 02/18/17 [Rx] Cefuroxime Axetil [Ceftin] 500 mg PO BID #10 tab 02/18/17 [Rx] Folic Acid 1 mg PO DAILY@1200 #30 tab 02/18/17 [Rx] Ipratropium-Albuterol Nebulize [Duoneb 0.5 mg-3 mg/3 ml Soln] 3 ml INHALATION QID #120 neb 02/18/17 [Rx] Multivitamins, Thera [Multivitamin (formulary)] 1 tab PO DAILY #30 tablet [Rx] guaiFENesin [Mucinex] 1,200 mg PO Q12HR tab 02/18/17 [Rx] traMADol HCl [Ultram] 50 mg PO Q6H PRN #20 tab 02/18/17 [Rx] Follow up Appointment(s)/Referral(s): Chandana Lewis MD [STAFF PHYSICIAN] - 1 Week (Office currently closed for lunch, please call to schedule appointment. ) Martina Harris MD [Primary Care Provider] - 02/22/17 (Pt prefers to make own appointment. ) Ambulatory/Diagnostic Orders: Complete Blood Count w/diff [LAB.AMB] Time Frame: 3 Days, Location: Determined By Patient Patient Instructions/Handouts: Urinary Tract Infection in Women (DC), Pneumonia (DC) Activity/Diet/Wound Care/Special Instructions: Diet consistent carb Accu-Cheks before meals and at bedtime and record. Take to drs appointment for evaluation. Activity: Limited until follow up Discharge Disposition: HOME SELF-CARE
== END 2017-02-18 14:31 | disposition home or self-care (01) | DRG 689 ==
LOC: EC 09:36 → 4MS4W 14:04
PROVIDERS: ADMIT Hospitalist; ATTEND Hospitalist
DX: N39.0 Urinary tract infection, site not specified (principal); J18.9 Pneumonia, unspecified organism; N17.9 Acute kidney failure, unspecified; D69.6 Thrombocytopenia, unspecified; E11.9 Type 2 diabetes mellitus without complications; E86.0 Dehydration; D63.8 Anemia in other chronic diseases classified elsewhere; J43.9 Emphysema, unspecified; I25.10 Atherosclerotic heart disease of native coronary artery without angina pectoris; I10 Essential (primary) hypertension; K21.9 Gastro-esophageal reflux disease without esophagitis; M19.90 Unspecified osteoarthritis, unspecified site; M54.9 Dorsalgia, unspecified; G89.29 Other chronic pain; B96.89 Other specified bacterial agents as the cause of diseases classified elsewhere; E78.5 Hyperlipidemia, unspecified; Z79.899 Other long term (current) drug therapy; Z79.82 Long term (current) use of aspirin; Z79.84 Long term (current) use of oral hypoglycemic drugs; Z83.3 Family history of diabetes mellitus; Z86.718 Personal history of other venous thrombosis and embolism; I25.2 Old myocardial infarction; Z86.73 Personal history of transient ischemic attack (TIA), and cerebral infarction without residual deficits; Z87.891 Personal history of nicotine dependence; Z90.49 Acquired absence of other specified parts of digestive tract; Z93.3 Colostomy status; Z85.048 Personal history of other malignant neoplasm of rectum, rectosigmoid junction, and anus; Z92.21 Personal history of antineoplastic chemotherapy; Z92.3 Personal history of irradiation; Z90.89 Acquired absence of other organs; Z89.411 Acquired absence of right great toe; Z82.49 Family history of ischemic heart disease and other diseases of the circulatory system
CPT/HCPCS: 36415; 71020; 80048; 80053; 81001; 83690; 84484; 85025; 85027; 87040; 87086; 93005; 94640; 96361; 96365; 96375; 99285

== ENCOUNTER → 2017-02-23 | Outpatient (CLI) | payer MEDICARE, OTHER ==
[2017-02-23 09:28] LABS: Basophils % (A) 1 %; CH 30.9; CHCM 31.5; Eosinophils # (A) 0.4 k/uL (0-0.7); Eosinophils % (A) 6 %; HCT 35.8 % (34.0-46.0); HDW 3.15; HGB 11.3 gm/dL (11.4-16.0); Hypochromasia Slight; Luc # (Auto) 0.17; Luc % (Auto) 3; Lymphocytes # (A) 1.2 k/uL (1.0-4.8); Lymphocytes % (A) 19 %; MCHC 31.4 g/dL (31.0-37.0); MCV 98.5 fL (80.0-100.0); Mean Platelet Volume 6.9; Monocytes # (A) 0.3 k/uL (0-1.0); Monocytes % (A) 5 %; Neutrophils # (A) 4.2 k/uL (1.3-7.7); Neutrophils % (A) 67 %; RBC 3.63 m/uL (3.80-5.40); RDW 14.6 % (11.5-15.5); WBC 6.3 k/uL (3.8-10.6); WBC (Perox) 6.66
[2017-02-23 09:47] LABS: Calcium 9.7 mg/dL (8.4-10.2)
== END | disposition home or self-care (01) ==
LOC: LABWHC1 08:52
PROVIDERS: ATTEND Nurse Practitioner
DX: N17.9 Acute kidney failure, unspecified (principal); J18.9 Pneumonia, unspecified organism
CPT/HCPCS: 36415; 80048; 85025

== ENCOUNTER → 2017-06-01 | Outpatient (CLI) | payer MEDICARE, OTHER | END | disposition home or self-care (01) | LOC: LABWHC1 10:06 | PROVIDERS: ATTEND Surgery | DX: C18.9 Malignant neoplasm of colon, unspecified (principal); Z85.038 Personal history of other malignant neoplasm of large intestine | CPT/HCPCS: 36415; 82378 ==

== ENCOUNTER → 2017-06-07 | Outpatient (CLI) | payer MEDICARE, OTHER ==
[2017-06-07 10:30] LABS: Basophils % (A) 1 %; Eosinophils # (A) 0.4 k/uL (0-0.7); Eosinophils % (A) 7 %; HCT 38.2 % (34.0-46.0); Lymphocytes # (A) 1.7 k/uL (1.0-4.8); Lymphocytes % (A) 30 %; MCHC 31.5 g/dL (31.0-37.0); MCV 101.7 fL (80.0-100.0); Macrocytosis Slight; Mean Platelet Volume 7.5; Monocytes # (A) 0.3 k/uL (0-1.0); Monocytes % (A) 5 %; Neutrophils # (A) 3.2 k/uL (1.3-7.7); Neutrophils % (A) 56 %; Platelet Count 148 k/uL (150-450); RBC 3.76 m/uL (3.80-5.40); RDW 15.4 % (11.5-15.5); WBC 5.8 k/uL (3.8-10.6)
[2017-06-07 10:48] LABS: Calcium 9.9 mg/dL (8.4-10.2); Potassium 5.6 mmol/L (3.5-5.1); Total Bilirubin 0.4 mg/dL (0.2-1.3); Total Protein 7.4 g/dL (6.3-8.2)
[2017-06-07 11:02] LABS: T4, Free (Free Thyroxine) 0.74 ng/dL (0.78-2.19)
[2017-06-07 16:11] LABS: Hemoglobin A1C 7.7 % (4.0-6.0)
== END | disposition home or self-care (01) ==
LOC: LABWHC1 09:51
PROVIDERS: ATTEND Internal Medicine
DX: E78.00 Pure hypercholesterolemia, unspecified (principal); I10 Essential (primary) hypertension; E11.65 Type 2 diabetes mellitus with hyperglycemia
CPT/HCPCS: 36415; 80053; 80061; 83036; 84439; 84443; 85025

== ENCOUNTER 2017-07-04 19:23 | Emergency (ER) | payer MEDICARE, OTHER ==
[2017-07-04 19:33] VITALS: RESP 18; TEMP 97.7
[2017-07-04] MEDS ORDERED: SODIUM CHLORIDE 0.9% 1,000 ML IV STA ×2 (19:41→21:13)
--- NOTE | 2017-07-04 19:44 | ED ---
General Adult HPI - General Chief complaint: Neuro Symptoms/Deficit Stated complaint: Muscle cramps Time Seen by Provider: 07/04/17 19:34 Source: patient, RN notes reviewed, Caregiver Mode of arrival: wheelchair Limitations: no limitations - History of Present Illness Initial comments: Patient is a pleasant 72-year-old female presenting to the emergency Department with muscle cramps. Symptoms have been occurring for the past couple of days. Patient has had similar symptoms previously associated with dehydration. Patient states she does try to drink enough fluids. Patient did have one episode of vomiting earlier today. Patient also had an episode earlier today that lasted a couple seconds of paresthesias left hand and left face. Patient denied having any weakness. No confusion. No speech problems. Patient states she still had feeling in her hand and face. - Related Data Home Medications Medication Instructions Recorded Confirmed Aspirin 325 mg PO DAILY 10/30/16 02/15/17 Cyanocobalamin (Vitamin B-12) 1,000 mcg PO DAILY 10/30/16 02/15/17 [Vitamin B-12] Ferrous Sulfate [Iron (65 MG 325 mg PO HS 10/30/16 02/15/17 Elemental)] Glimepiride [Amaryl] 1 mg PO DAILY 10/30/16 02/15/17 Isosorbide Mononitrate 20 mg PO DAILY 10/30/16 02/15/17 Losartan Potassium 25 mg PO DAILY 10/30/16 02/15/17 Magnesium Oxide [Magnesium] 500 mg PO BID 10/30/16 02/15/17 Metoprolol Tartrate 25 mg PO HS 10/30/16 02/15/17 Omeprazole 20 mg PO DAILY 10/30/16 02/15/17 Simvastatin 20 mg PO HS 10/30/16 02/15/17 Sodium Bicarbonate Tab 650 mg PO DAILY 10/30/16 02/15/17 busPIRone HCL 10 mg PO BID 10/30/16 02/15/17 Folic Acid 0.8 mg PO DAILY 02/15/17 02/15/17 Previous Rx's Medication Instructions Recorded Budesonide [Pulmicort] 0.5 mg INHALATION BID #60 neb 02/18/17 Cefuroxime Axetil [Ceftin] 500 mg PO BID #10 tab 02/18/17 Folic Acid 1 mg PO DAILY@1200 #30 tab 02/18/17 Ipratropium-Albuterol Nebulize 3 ml INHALATION QID #120 neb 02/18/17 [Duoneb 0.5 mg-3 mg/3 ml Soln] Multivitamins, Thera [Multivitamin 1 tab PO DAILY #30 tablet 02/18/17 (formulary)] guaiFENesin [Mucinex] 1,200 mg PO Q12HR tab 02/18/17 traMADol HCl [Ultram] 50 mg PO Q6H PRN #20 tab 02/18/17 Allergies Allergy/AdvReac Type Severity Reaction Status Date / Time No Known Allergies Allergy Verified 02/15/17 10:03 Review of Systems ROS Statement: Those systems with pertinent positive or pertinent negative responses have been documented in the HPI. ROS Other: All systems not noted in ROS Statement are negative. Constitutional: Denies: fever Eyes: Denies: eye pain ENT: Denies: ear pain Respiratory: Denies: cough Cardiovascular: Denies: chest pain Endocrine: Denies: as per HPI Gastrointestinal: Reports: vomiting. Denies: abdominal pain Genitourinary: Denies: dysuria Musculoskeletal: Denies: back pain Skin: Denies: rash Neurological: Reports: paresthesias. Denies: headache, weakness, confusion Past Medical History Past Medical History: Coronary Artery Disease (CAD), Cancer, CVA/TIA, Diabetes Mellitus, Deep Vein Thrombosis (DVT), GERD/Reflux, Hyperlipidemia, Hypertension , Myocardial Infarction ([place]), Osteoarthritis (OA), Vascular Disorder Additional Past Medical History / Comment(s): tia, chronic back pain, rectal cancer 2008(had sx, chemo, radiation), "bad circulation", emphysema,uti, had a pne vaccine after age 63-not sure of exact date. Last Myocardial Infarction Date:: 1994 History of Any Multi-Drug Resistant Organisms: None Reported Past Surgical History: Appendectomy, Bladder Surgery, Bowel Resection, Orthopedic Surgery, Tubal Ligation Additional Past Surgical History / Comment(s): colonoscopy, bowel resection w/ colostomy. stated has 3 colostmy sx. rt great toe amp, rt hand trigger finger sx , blood clots removed rt leg 2008, rt carpal tunnel release, Past Anesthesia/Blood Transfusion Reactions: No Reported Reaction Additional Past Anesthesia/Blood Transfusion Reaction / Comment(s): had blood transfusion-no reaction Past Psychological History: No Psychological Hx Reported Smoking Status: Former smoker - Past Family History Mother Family Medical History: Diabetes Mellitus Father Family Medical History: Myocardial Infarction ([place]) General Exam Limitations: no limitations General appearance: alert, in no apparent distress Head exam: Present: atraumatic Eye exam: Present: normal appearance, PERRL, EOMI. Absent: nystagmus ENT exam: Present: normal oropharynx Neck exam: Present: normal inspection Respiratory exam: Present: normal lung sounds bilaterally Cardiovascular Exam: Present: regular rate, normal rhythm GI/Abdominal exam: Present: soft. Absent: distended, tenderness Extremities exam: Present: normal inspection. Absent: pedal edema, calf tenderness Neurological exam: Present: alert, oriented X3, CN II-XII intact. Absent: motor sensory deficit Expanded Neurological exam: Present: protecting the airway Patient oriented to: Present: person, place, time Speech: Present: fluid speech Cranial nerves: EOM's Intact: Normal, Facial Sensation: Normal Cerebellar function: Finger to Nose: Normal Sensory exam: Upper Extremity Light Touch: Normal, Lower Extremity Light Touch: Normal Motor strength exam: RUE: 5, LUE: 5, RLE: 5, LLE: 5 Eye Response: (4) open spontaneously Motor Response: (6) obeys commands Verbal Response: (5) oriented Psychiatric exam: Present: normal affect, normal mood Skin exam: Present: normal color Course Vital Signs 07/04/17 19:26 Temperature 97.7 F Pulse Rate 85 Respiratory 18 Rate Blood Pressure 184/82 O2 Sat by Pulse 100 Oximetry EKG Findings - EKG Comments: EKG Findings:: Normal sinus rhythm 84. ID 126. QRS 92. QT 392. QTC 463. Left axis. Septal Q waves. No acute ST change. Medical Decision Making - Medical Decision Making Patient reevaluated and resting comfortably in bed. Patient and family updated on results and need for follow-up. - Lab Data Result diagrams: 07/04/17 19:40 07/04/17 19:40 Lab Results 07/04/17 07/04/17 07/04/17 Range/Units 19:40 19:40 19:40 WBC 9.0 (3.8-10.6) k/uL RBC 3.83 (3.80-5.40) m/uL Hgb 12.7 (11.4-16.0) gm/dL Hct 36.6 (34.0-46.0) % MCV 95.4 D (80.0-100.0) fL MCH 33.1 (25.0-35.0) pg MCHC 34.7 (31.0-37.0) g/dL RDW 13.4 (11.5-15.5) % Plt Count 158 (150-450) k/uL Neutrophils % 73 % Lymphocytes % 18 % Monocytes % 5 % Eosinophils % 2 % Basophils % 0 % Neutrophils # 6.5 (1.3-7.7) k/uL Lymphocytes # 1.7 (1.0-4.8) k/uL Monocytes # 0.5 (0-1.0) k/uL Eosinophils # 0.2 (0-0.7) k/uL Basophils # 0.0 (0-0.2) k/uL PT (9.0-12.0) sec INR (<1.2) APTT (22.0-30.0) sec Sodium 138 (137-145) mmol/L Potassium 4.7 (3.5-5.1) mmol/L Chloride 103 (98-107) mmol/L Carbon Dioxide 23 (22-30) mmol/L Anion Gap 12 mmol/L BUN 44 H (7-17) mg/dL Creatinine 1.50 H (0.52-1.04) mg/dL Est GFR (MDRD) Af Amer 41 (>60 ml/min/1.73 sqM) Est GFR (MDRD) Non-Af 34 (>60 ml/min/1.73 sqM) Glucose 130 H (74-99) mg/dL Plasma Lactic Acid [place] (0.7-2.0) mmol/L Calcium 9.8 (8.4-10.2) mg/dL Phosphorus 4.5 (2.5-4.5) mg/dL Magnesium 1.7 (1.6-2.3) mg/dL Total Bilirubin 0.6 (0.2-1.3) mg/dL AST 45 H (14-36) U/L ALT 46 (9-52) U/L Alkaline Phosphatase 70 (38-126) U/L Total Creatine Kinase 80 (30-135) U/L CK-MB (CK-2) 2.5 H* (0.0-2.4) ng/mL CK-MB (CK-2) Rel Index 3.1 Troponin I <0.012 (0.000-0.034) ng/mL Total Protein 8.1 (6.3-8.2) g/dL Albumin 4.5 (3.5-5.0) g/dL Free T4 1.05 (0.78-2.19) ng/dL Free T3 pg/mL 3.4 (2.8-5.3) pg/ml 07/04/17 07/04/17 Range/Units 19:40 19:40 WBC (3.8-10.6) k/uL RBC (3.80-5.40) m/uL Hgb (11.4-16.0) gm/dL Hct (34.0-46.0) % MCV (80.0-100.0) fL MCH (25.0-35.0) pg MCHC (31.0-37.0) g/dL RDW (11.5-15.5) % Plt Count (150-450) k/uL Neutrophils % % Lymphocytes % % Monocytes % % Eosinophils % % Basophils % % Neutrophils # (1.3-7.7) k/uL Lymphocytes # (1.0-4.8) k/uL Monocytes # (0-1.0) k/uL Eosinophils # (0-0.7) k/uL Basophils # (0-0.2) k/uL PT 9.7 (9.0-12.0) sec INR 1.0 (<1.2) APTT 22.4 (22.0-30.0) sec Sodium (137-145) mmol/L Potassium (3.5-5.1) mmol/L Chloride (98-107) mmol/L Carbon Dioxide (22-30) mmol/L Anion Gap mmol/L BUN (7-17) mg/dL Creatinine (0.52-1.04) mg/dL Est GFR (MDRD) Af Amer (>60 ml/min/1.73 sqM) Est GFR (MDRD) Non-Af (>60 ml/min/1.73 sqM) Glucose (74-99) mg/dL Plasma Lactic Acid [place] 1.1 (0.7-2.0) mmol/L Calcium (8.4-10.2) mg/dL Phosphorus (2.5-4.5) mg/dL Magnesium (1.6-2.3) mg/dL Total Bilirubin (0.2-1.3) mg/dL AST (14-36) U/L ALT (9-52) U/L Alkaline Phosphatase (38-126) U/L Total Creatine Kinase (30-135) U/L CK-MB (CK-2) (0.0-2.4) ng/mL CK-MB (CK-2) Rel Index Troponin I (0.000-0.034) ng/mL Total Protein (6.3-8.2) g/dL Albumin (3.5-5.0) g/dL Free T4 (0.78-2.19) ng/dL Free T3 pg/mL (2.8-5.3) pg/ml - Radiology Data Radiology results: image reviewed (Chest x-ray shows no acute process. Computed tomography scan of the brain shows mild chronic appearing white matter changes.) Disposition Clinical Impression: Dehydration Disposition: HOME SELF-CARE Condition: Stable Instructions: Dehydration (ED) Additional Instructions: Please follow-up with your doctor in the next day or 2 for recheck and further evaluation. You'll need blood levels rechecked as well as further testing. Return for weakness, loss of sensation, confusion, increased muscle cramps, worsening symptoms or any other concerns. Increase fluid intake. Referrals: Martina Harris MD [Primary Care Provider] - 1-2 days Time of Disposition: 21:21
[2017-07-04 20:01] LABS: Basophils % (A) 0 %; Eosinophils # (A) 0.2 k/uL (0-0.7); Eosinophils % (A) 2 %; HCT 36.6 % (34.0-46.0); HGB 12.7 gm/dL (11.4-16.0); Lymphocytes # (A) 1.7 k/uL (1.0-4.8); Lymphocytes % (A) 18 %; MCH 33.1 pg (25.0-35.0); MCHC 34.7 g/dL (31.0-37.0); Mean Platelet Volume 6.9; Monocytes # (A) 0.5 k/uL (0-1.0); Monocytes % (A) 5 %; Neutrophils # (A) 6.5 k/uL (1.3-7.7); Neutrophils % (A) 73 %; Platelet Count 158 k/uL (150-450); RBC 3.83 m/uL (3.80-5.40); RDW 13.4 % (11.5-15.5)
[2017-07-04 20:08] LABS: MCV 95.4 fL (80.0-100.0)
[2017-07-04 20:15] LABS: Partial Thromboplastin Time 22.4 sec (22.0-30.0); Prothrombin Time 9.7 sec (9.0-12.0)
[2017-07-04 20:36] LABS: Albumin 4.5 g/dL (3.5-5.0); Calcium 9.8 mg/dL (8.4-10.2); Creatine Kinase 80 U/L (30-135); Magnesium 1.7 mg/dL (1.6-2.3); Phosphorus 4.5 mg/dL (2.5-4.5); Potassium 4.7 mmol/L (3.5-5.1); Total Bilirubin 0.6 mg/dL (0.2-1.3); Total Protein 8.1 g/dL (6.3-8.2)
--- NOTE | 2017-07-04 20:37 | XR ---
EXAMINATION TYPE: XR chest 2V DATE OF EXAM: 07/04/2017 COMPARISON: 02/15/2017 INDICATION: Weakness TECHNIQUE: Frontal and lateral views of the chest are obtained. FINDINGS: The heart size is normal. The pulmonary vasculature is normal. The lungs are clear. There is good inspiratory effort present. IMPRESSION: 1. No acute pulmonary process.
--- NOTE | 2017-07-04 20:37 | CT ---
EXAMINATION TYPE: CT brain wo con DATE OF EXAM: 07/04/2017 COMPARISON: NONE INDICATION: Patient complains of left hand numbness and weakness. DLP: 1079 mGycm, Automated exposure control for dose reduction was used. CONTRAST: None CT of the brain is performed utilizing 3 mm thick sections through the posterior fossa and 3 mm thick sections through the remaining calvarium. Study is performed within 24 hours of arrival to the hosp ital. No abnormal hyperdensity is present to suggest an acute intracranial hemorrhage. No mass lesion is evident. No acute infarcts are evident. There is some. Trabecular white matter hypodensity, likely on the basi s of chronic white matter ischemic changes. Ventricles and sulci are minimally prominent for the patient age. Paranasal sinuses and mastoid air cells within the [id number] are clear. IMPRESSIONS: 1. Mild chronic appearing white matter ischemic changes.
[2017-07-04 20:49] LABS: Troponin I <0.012 ng/mL (0.000-0.034)
[2017-07-04 20:53] LABS: T4, Free (Free Thyroxine) 1.05 ng/dL (0.78-2.19)
[2017-07-04 21:01] LABS: Creatine Kinase MB 2.5 ng/mL (0.0-2.4)
[2017-07-04 21:43] LABS: Appearance,Urine Clear (Clear); Bilirubin,Urine Negative (Negative); Blood,Urine Trace (Negative); Color,Urine Yellow; Glucose,Urine (UA) Negative (Negative); Ketones,Urine Negative (Negative); Leukocyte Esterase,Urine Large (Negative); Mucus,Urine Rare /hpf; Nitrite,Urine Negative (Negative); Protein,Urine 1+ (Negative); RBC,Urine 6 /hpf (0-5); Specific Gravity,Urine 1.013 (1.001-1.035); Squamous Epithelial Cell,Urine <1 /hpf (0-4); Urobilinogen,Urine <2.0 mg/dL (<2.0); WBC,Urine 47 /hpf (0-5)
[2017-07-04] MEDS ORDERED: traMADol 50 MG TAB PO STA (22:11)
[2017-07-04 22:15] VITALS: BP 170/72; PULSE 73
== END 2017-07-04 22:39 | disposition home or self-care (01) ==
LOC: EC 19:23
DX: E86.0 Dehydration (principal); R20.2 Paresthesia of skin; R11.10 Vomiting, unspecified; I25.10 Atherosclerotic heart disease of native coronary artery without angina pectoris; E11.9 Type 2 diabetes mellitus without complications; K21.9 Gastro-esophageal reflux disease without esophagitis; E78.5 Hyperlipidemia, unspecified; I10 Essential (primary) hypertension; I25.2 Old myocardial infarction; I73.9 Peripheral vascular disease, unspecified; Z86.73 Personal history of transient ischemic attack (TIA), and cerebral infarction without residual deficits; Z86.718 Personal history of other venous thrombosis and embolism; Z85.048 Personal history of other malignant neoplasm of rectum, rectosigmoid junction, and anus; Z87.891 Personal history of nicotine dependence; Z98.890 Other specified postprocedural states; Z79.84 Long term (current) use of oral hypoglycemic drugs; Z79.899 Other long term (current) drug therapy
CPT/HCPCS: 36415; 70450; 71046; 80053; 81001; 82550; 82553; 83605; 83735; 84100; 84439; 84443; 84481; 84484; 85025; 85610; 85730; 93005; 96360; 99284

== ENCOUNTER 2018-05-03 14:54 | Observation (INO) | payer MEDICARE, OTHER ==
[2018-05-03] MEDS ORDERED: SODIUM CHLORIDE 0.9% 1,000 ML IV STA (15:39)
--- NOTE | 2018-05-03 16:08 | ED ---
General Adult HPI - General Chief complaint: Neuro Symptoms/Deficit Stated complaint: Rt arm numbness Time Seen by Provider: 05/03/18 15:21 Source: patient, RN notes reviewed Mode of arrival: ambulatory Limitations: no limitations - History of Present Illness Initial comments: 73 year old female with a complicated past medical history presents to the emergency department for a chief complaint of right arm heaviness times one day. Patient states this started yesterday morning although she is unsure of an exact time. Patient states her arm feels heavy. She also admits to tingling in the right hand. She denies any numbness or tingling in lower extremities. She denies any weakness in the lower extremities. She denies any head injury. Patient states he is overall feeling well. She denies any slurred speech or confusion. Patient has no other complaints at this time including shortness of breath, chest pain, abdominal pain, nausea or vomiting, headache, or visual changes. - Related Data Home Medications Medication Instructions Recorded Confirmed Cyanocobalamin (Vitamin B-12) 1,000 mcg PO DAILY 10/30/16 05/03/18 [Vitamin B-12] Glimepiride [Amaryl] 1 mg PO DAILY 10/30/16 05/03/18 Isosorbide Mononitrate 20 mg PO DAILY 10/30/16 05/03/18 Losartan Potassium 25 mg PO DAILY 10/30/16 05/03/18 Magnesium Oxide [Magnesium] 500 mg PO DAILY 10/30/16 05/03/18 Omeprazole 20 mg PO DAILY 10/30/16 05/03/18 Simvastatin 20 mg PO HS 10/30/16 05/03/18 Sodium Bicarbonate Tab 650 mg PO DAILY 10/30/16 05/03/18 Gabapentin [Neurontin] 300 mg PO TID 02/28/18 05/03/18 Aspirin [Adult Low Dose Aspirin EC] 81 mg PO DAILY 05/03/18 05/03/18 Metoprolol Tartrate [Lopressor] 50 mg PO BID 05/03/18 05/03/18 Previous Rx's Medication Instructions Recorded Folic Acid 1 mg PO DAILY@1200 #30 tab 02/18/17 Multivitamins, Thera [Multivitamin 1 tab PO DAILY #30 tablet 02/18/17 (formulary)] traMADol HCl [Ultram] 50 mg PO Q6H PRN #20 tab 02/18/17 Allergies Allergy/AdvReac Type Severity Reaction Status Date / Time No Known Allergies Allergy Verified 05/03/18 15:39 Review of Systems ROS Statement: Those systems with pertinent positive or pertinent negative responses have been documented in the HPI. ROS Other: All systems not noted in ROS Statement are negative. Past Medical History Past Medical History: Coronary Artery Disease (CAD), Cancer, CVA/TIA, Diabetes Mellitus, Deep Vein Thrombosis (DVT), GERD/Reflux, Hyperlipidemia, Hypertension , Myocardial Infarction ([place]), Osteoarthritis (OA), Vascular Disorder Additional Past Medical History / Comment(s): tia, chronic back pain, rectal cancer 2008(had sx, chemo, radiation), "bad circulation", emphysema,uti, had a pne vaccine after age 63-not sure of exact date. Last Myocardial Infarction Date:: 1994 History of Any Multi-Drug Resistant Organisms: None Reported Past Surgical History: Appendectomy, Bladder Surgery, Bowel Resection, Orthopedic Surgery, Tubal Ligation Additional Past Surgical History / Comment(s): colonoscopy, bowel resection w/ colostomy. stated has 3 colostmy sx. rt great toe amp, rt hand trigger finger sx , blood clots removed rt leg 2008, rt carpal tunnel release, Past Anesthesia/Blood Transfusion Reactions: No Reported Reaction Additional Past Anesthesia/Blood Transfusion Reaction / Comment(s): had blood transfusion-no reaction Past Psychological History: No Psychological Hx Reported Smoking Status: Former smoker Past Alcohol Use History: None Reported Past Drug Use History: None Reported - Past Family History Mother Family Medical History: Diabetes Mellitus Father Family Medical History: Myocardial Infarction ([place]) General Exam Limitations: no limitations General appearance: alert, in no apparent distress Head exam: Present: atraumatic, normocephalic, normal inspection Eye exam: Present: normal appearance, PERRL, EOMI. Absent: scleral icterus, conjunctival injection, periorbital swelling ENT exam: Present: normal exam, normal oropharynx ([place] midline), mucous membranes moist, TM's normal bilaterally, normal external ear exam Neck exam: Present: normal inspection, full ROM. Absent: tenderness, meningismus, lymphadenopathy Respiratory exam: Present: normal lung sounds bilaterally. Absent: respiratory distress, wheezes, rales, rhonchi, stridor Cardiovascular Exam: Present: regular rate, normal rhythm, normal heart sounds. Absent: systolic murmur, diastolic murmur, rubs, gallop, clicks GI/Abdominal exam: Present: soft, normal bowel sounds. Absent: distended, tenderness, guarding, rebound, rigid Extremities exam: Present: full ROM (Full range of motion of the right upper extremity, sensation in the right upper extremity. Sales Operations Assistant strength 5 out of 5 in the right upper extremity), normal capillary refill (Appendectomy refill less than 2 seconds, radial pulse 2+), other (Patient intact in the right upper extremity, no drift) Neurological exam: Present: alert, oriented X3, CN II-XII intact Expanded Patient oriented to: Present: person, place, time Speech: Present: fluid speech Cranial nerves: EOM's Intact: Normal, Tongue Deviation: Normal, Nystagmus: Normal, Facial Sensation: Normal Cerebellar function: Finger to Nose: Normal, Heel to [place]: Normal, [place]: Normal Upper motor neuron: Pronator Drift: Normal Sensory exam: Upper Extremity Light Touch: Normal, Upper Extremity Pin Prick: Normal, Lower Extremity Light Touch: Normal, Lower Extremity Pin Prick: Normal Motor strength exam: RUE: 5, LUE: 5, RLE: 5, LLE: 5 Eye Response: (4) open spontaneously Motor Response: (6) obeys commands Verbal Response: (5) oriented [employer] Total: 15 Psychiatric exam: Present: normal affect, normal mood Course Vital Signs 05/03/18 05/03/18 14:56 17:00 Temperature 98.3 F Pulse Rate 82 68 Respiratory 16 18 Rate Blood Pressure 191/69 171/90 O2 Sat by Pulse 98 99 Oximetry Medical Decision Making - Medical Decision Making 73-year-old male with a, located past medical history and history of TIA presents for right arm heaviness and paresthesias 2 days. Patient states this sensation started yesterday. On exam patient has sensation intact in the right upper extremity and radial pulses 2+. She does have full strength in the right upper extremity which is equal to the left upper extremity bilaterally. EKG does not show any significant changes. CBC is unremarkable. Potassium 5.4 which will be repeated in the morning. Creatinine 1.33, patient given fluids. Troponin is negative. CT brain shows no acute intracranial hemorrhage or mass effect. No fracture or dislocation in the cervical spine. However there is multilevel moderate marked spondylosis changes. Patient is high risk for stroke with history of TIA and diabetes and is not anticoagulated patient will be admitted for further evaluation. - Lab Data Result diagrams: 05/03/18 16:30 05/03/18 16:30 Lab Results 05/03/18 05/03/18 05/03/18 Range/Units 16:30 16:30 16:30 WBC 6.3 (3.8-10.6) k/uL RBC 3.64 L (3.80-5.40) m/uL Hgb 11.8 (11.4-16.0) gm/dL Hct 34.8 (34.0-46.0) % MCV 95.7 (80.0-100.0) fL MCH 32.4 (25.0-35.0) pg MCHC 33.9 (31.0-37.0) g/dL RDW 13.8 (11.5-15.5) % Plt Count 170 (150-450) k/uL Neutrophils % 57 % Lymphocytes % 33 % Monocytes % 5 % Eosinophils % 2 % Basophils % 0 % Neutrophils # 3.6 (1.3-7.7) k/uL Lymphocytes # 2.1 (1.0-4.8) k/uL Monocytes # 0.3 (0-1.0) k/uL Eosinophils # 0.2 (0-0.7) k/uL Basophils # 0.0 (0-0.2) k/uL PT (9.0-12.0) sec INR (<1.2) APTT (22.0-30.0) sec Sodium 141 (137-145) mmol/L Potassium 5.4 H (3.5-5.1) mmol/L Chloride 108 H (98-107) mmol/L Carbon Dioxide 23 (22-30) mmol/L Anion Gap 10 mmol/L BUN 31 H (7-17) mg/dL Creatinine 1.33 H (0.52-1.04) mg/dL Est GFR (CKD-EPI)AfAm 45 (>60 ml/min/1.73 sqM) Est GFR (CKD-EPI)NonAf 39 (>60 ml/min/1.73 sqM) Glucose 121 H (74-99) mg/dL Calcium 10.1 (8.4-10.2) mg/dL Total Bilirubin 0.4 (0.2-1.3) mg/dL AST 38 H (14-36) U/L ALT 34 (9-52) U/L Alkaline Phosphatase 61 (38-126) U/L Total Creatine Kinase 96 (30-135) U/L CK-MB (CK-2) 5.5 H (0.0-2.4) ng/mL CK-MB (CK-2) Rel Index 5.7 Troponin I <0.012 (0.000-0.034) ng/mL Total Protein 8.4 H (6.3-8.2) g/dL Albumin 4.6 (3.5-5.0) g/dL 05/03/18 Range/Units 16:30 WBC (3.8-10.6) k/uL RBC (3.80-5.40) m/uL Hgb (11.4-16.0) gm/dL Hct (34.0-46.0) % MCV (80.0-100.0) fL MCH (25.0-35.0) pg MCHC (31.0-37.0) g/dL RDW (11.5-15.5) % Plt Count (150-450) k/uL Neutrophils % % Lymphocytes % % Monocytes % % Eosinophils % % Basophils % % Neutrophils # (1.3-7.7) k/uL Lymphocytes # (1.0-4.8) k/uL Monocytes # (0-1.0) k/uL Eosinophils # (0-0.7) k/uL Basophils # (0-0.2) k/uL PT 9.7 (9.0-12.0) sec INR 0.9 (<1.2) APTT 22.6 (22.0-30.0) sec Sodium (137-145) mmol/L Potassium (3.5-5.1) mmol/L Chloride (98-107) mmol/L Carbon Dioxide (22-30) mmol/L Anion Gap mmol/L BUN (7-17) mg/dL Creatinine (0.52-1.04) mg/dL Est GFR (CKD-EPI)AfAm (>60 ml/min/1.73 sqM) Est GFR (CKD-EPI)NonAf (>60 ml/min/1.73 sqM) Glucose (74-99) mg/dL Calcium (8.4-10.2) mg/dL Total Bilirubin (0.2-1.3) mg/dL AST (14-36) U/L ALT (9-52) U/L Alkaline Phosphatase (38-126) U/L Total Creatine Kinase (30-135) U/L CK-MB (CK-2) (0.0-2.4) ng/mL CK-MB (CK-2) Rel Index Troponin I (0.000-0.034) ng/mL Total Protein (6.3-8.2) g/dL Albumin (3.5-5.0) g/dL Disposition Clinical Impression: TIA (transient ischemic attack), Hyperkalemia, Diabetes Disposition: ADMITTED IP TO THIS HOSP Condition: Good Is patient prescribed a controlled substance at d/c from ED?: No Referrals: Martina Harris MD [Primary Care Provider] - 1-2 days Time of Disposition: 18:33
[2018-05-03 16:46] LABS: Basophils % (A) 0 %; Eosinophils # (A) 0.2 k/uL (0-0.7); Eosinophils % (A) 2 %; HCT 34.8 % (34.0-46.0); HGB 11.8 gm/dL (11.4-16.0); Lymphocytes # (A) 2.1 k/uL (1.0-4.8); Lymphocytes % (A) 33 %; MCH 32.4 pg (25.0-35.0); MCHC 33.9 g/dL (31.0-37.0); MCV 95.7 fL (80.0-100.0); Mean Platelet Volume 6.7; Monocytes # (A) 0.3 k/uL (0-1.0); Monocytes % (A) 5 %; Neutrophils # (A) 3.6 k/uL (1.3-7.7); Neutrophils % (A) 57 %; Platelet Count 170 k/uL (150-450); RBC 3.64 m/uL (3.80-5.40); RDW 13.8 % (11.5-15.5); WBC 6.3 k/uL (3.8-10.6)
[2018-05-03 16:55] LABS: Albumin 4.6 g/dL (3.5-5.0); Calcium 10.1 mg/dL (8.4-10.2); Potassium 5.4 mmol/L (3.5-5.1); Total Bilirubin 0.4 mg/dL (0.2-1.3); Total Protein 8.4 g/dL (6.3-8.2)
[2018-05-03 16:58] LABS: INR 0.9 (<1.2)
[2018-05-03 16:59] LABS: Partial Thromboplastin Time 22.6 sec (22.0-30.0); Prothrombin Time 9.7 sec (9.0-12.0)
--- NOTE | 2018-05-03 17:02 | XR ---
EXAMINATION: XR chest 2V DATE AND TIME: 05/03/2018 4:57 PM CLINICAL INDICATION: PHH; altered mental status TECHNIQUE: Departmental protocol COMPARISON: 07/04/2017 FINDINGS: The lungs are clear. The pleural spaces are negative. The cardiac silhouette is not enlarged. The remainder of the mediastinal silhouette is unremarkable. The skeletal structures and soft tissues are negative for acute findings. IMPRESSION: NO ACUTE PROCESS.
[2018-05-03 17:09] LABS: Creatine Kinase 96 U/L (30-135)
[2018-05-03 17:22] LABS: Creatine Kinase MB 5.5 ng/mL (0.0-2.4); Troponin I <0.012 ng/mL (0.000-0.034)
--- NOTE | 2018-05-03 17:22 | CT ---
EXAMINATION TYPE: CT brain cspine wo con DATE OF EXAM: 05/03/2018 COMPARISON: 07/04/2017 HISTORY: Right arm numbness CT DLP: 1357.5 mGycm Automated exposure control for dose reduction was used. TECHNIQUE: CT scan of the head and cervical spine are performed without contrast. FINDINGS: There is no acute intracranial hemorrhage, mass effect, or midline shift identified. The ventricles and sulci are within normal limits in size. The globes are intact and the visualized sinu ses are clear. Cervical spine is visualized in its entirety from C1 through upper thoracic levels and demonstrates s atisfactory alignment without evidence of acute fracture or dislocation. Prevertebral soft tissue ap pears within normal limits. Multilevel moderate and moderate marked spondylosis changes are appreciat ed. The C1-C2 articulation is unremarkable. IMPRESSION: 1. There is no acute fracture or dislocation evident in the cervical spine. 2. No acute intracranial hemorrhage, mass effect, or midline shift is seen.
[2018-05-03] MEDS: SODIUM CHLORIDE 0.9% 1,000 ML IV SCH (19:41)
[2018-05-03] MEDS ORDERED: METOPROLOL TARTRATE 50 MG TAB PO STA (19:46)
[2018-05-03] MEDS ORDERED: ALPRAZolam 0.25 MG TAB PO PRN (20:21)
[2018-05-03] MEDS ORDERED: ACETAMINOPHEN TAB 500 MG TAB PO PRN (20:21)
[2018-05-03] MEDS ORDERED: MELATONIN 3 MG TABLET PO PRN (20:21)
--- NOTE | 2018-05-03 20:55 | HP ---
HISTORY AND PHYSICAL DATE OF SERVICE: 05/03/2018 CHIEF COMPLAINT: Right arm numbness. HISTORY OF PRESENT ILLNESS: This 73-year-old woman with a past medical history of CAD, history of CVA, TIA, diabetes mellitus, type 2, hypertension, DVT, history of GERD, hypertension, hyperlipidemia, appendectomy, bladder surgery, being followed by Dr. Harris in the outpatient setting, had previous multiple TIAs. Currently the patient is complaining of numbness of the right arm for the last one day. Patient felt a funny feeling and also patient reports the arm was feeling heavy, and the patient came to [facility] and was admitted for further evaluation. CT scan did not show any acute abnormality. Neurology evaluation is in progress. PAST MEDICAL HISTORY: 1. History of CVA, TIA. 2. History of CAD. 3. Diabetes mellitus, type 2. 4. DVT. 5. GERD. 6. Hypertension. 7. Hyperlipidemia. 8. History of myocardial infarction. 9. DJD. MEDICATIONS: Medications prior to admission include: 1. Ultram 50 mg q.6 p.r.n. 2. Simvastatin 20 mg at bedtime. 3. Omeprazole 20 mg daily. 4. Imdur 20 mg p.o. daily. 5. Folic acid 1 mg p.o. daily. 6. Aspirin 81 mg daily. 7. Lopressor 50 mg p.o. b.i.d. 8. Vitamin B12 1000 mcg p.o. daily. 9. Magnesium 500 mg p.o. daily. 10.Losartan 25 mg p.o. daily. 11.Multivitamins 1 p.o. daily. 12.Sodium bicarb 650 p.o. daily. 13.Amaryl 1 mg p.o. daily. 14.Neurontin 300 mg p.o. t.i.d. ALLERGIES: NONE. FAMILY HISTORY: History of diabetes mellitus in the family. SOCIAL HISTORY: Previous history of smoking. No history of alcohol intake. REVIEW OF SYSTEMS: ENT: No diminished hearing. No diminished vision. CARDIOVASCULAR SYSTEM: No angina, palpitations. RESPIRATORY SYSTEM: As mentioned earlier. GI: No nausea, vomiting. : No dysuria or retention. NERVOUS SYSTEM: As mentioned earlier. ALLERGY/IMMUNOLOGY: No asthma, hayfever. MUSCULOSKELETAL: As mentioned earlier. HEMATOLOGY/ONCOLOGY: No history of anemia. ENDOCRINE: Diabetes mellitus. CONSTITUTIONAL: As mentioned earlier. DERMATOLOGY: Negative. RHEUMATOLOGY: Negative. PSYCHIATRY: As mentioned earlier. PHYSICAL EXAMINATION: Patient is alert and oriented x3. Pulse 73, blood pressure 191/86, respiration 18, temperature 98.3, pulse ox 99% on room air. HEENT: Conjunctivae normal. Oral mucosa moist. NECK: No jugular venous distention. No carotid bruit. No lymph node enlargement. CARDIOVASCULAR SYSTEM: S1, S2 muffled. RESPIRATORY SYSTEM: Breath sounds diminished at the bases. A few scattered rhonchi. No crackles. ABDOMEN: Soft, non-tender. Colostomy present. LEGS: No edema. No swelling. NERVOUS SYSTEM: Higher functions as mentioned earlier. Cranial nerves 2 through 12 grossly intact. Moves all 4 limbs. No focal motor or sensory deficit. LYMPHATIC: No lymph node palpable in neck or axillae. SKIN: No ulcer, rash, bleeding. LABS: WBC 6.3, hemoglobin 11.8, sodium 141, potassium 5.4. Creatinine is 1.33. ASSESSMENT: 1. Right arm numbness; possible acute transient ischemic attack involving the left hemisphere. 2. Mild hyperkalemia. 3. Renal failure, possibly chronic kidney disease, stage III. 4. History of coronary artery disease. 5. History of cerebrovascular accident, transient ischemic attack. 6. Diabetes mellitus, type 2. 7. History of deep vein thrombosis. 8. Gastroesophageal reflux disease. 9. Hypertension. 10.Hyperlipidemia. 11.History of myocardial infarction. 12.History of degenerative joint disease. 13.History of rectal cancer. 14.History of appendectomy. 15.History of colostomy. RECOMMENDATIONS AND DISCUSSION: In this 73-year-old woman who presented with multiple complex medical issues., we will monitor the patient closely, continue the current medications, antiplatelet agents. Rule out acute stroke. Otherwise, neurovascular workup. Guarded prognosis because of the multiple complex medical issues. Further recommendations to follow. Neurology consultation. A copy of this dictation is being forwarded to Dr. Harris, who is the primary physician. MMODL / IJN: [id number] /
--- NOTE | 2018-05-03 20:59 | US ---
EXAMINATION TYPE: US carotid duplex BILAT DATE OF EXAM: 05/03/2018 COMPARISON: NONE CLINICAL HISTORY: Stenosis. Stenosis EXAM MEASUREMENTS: RIGHT: Peak Systolic Velocity (PSV) cm/sec ----- Right CCA: 74.2 ----- Right ICA: 70.3 ----- Right ECA: 112.9 ICA/CCA ratio: 0.9 RIGHT: End Diastole cm/sec ----- Right CCA: 16.8 ----- Right ICA: 12.9 ----- Right ECA: 11.1 LEFT: Peak Systolic Velocity (PSV) cm/sec ----- Left CCA: 80.1 ----- Left ICA: 91.8 ----- Left ECA: 120.0 ICA/CCA ratio: 1.1 LEFT: End Diastole cm/sec ----- Left CCA: 16.7 ----- Left ICA: 20.6 ----- Left ECA: 11.6 VERTEBRALS (direction of flow): Right Vertebral: Antegrade Left Vertebral: Antegrade Rhythm: Normal IMPRESSION: NO SIGNIFICANT STENOSIS SEEN.
[2018-05-03 21:37] LABS: Glucose,Whole Blood 109 mg/dL (75-99)
[2018-05-03] MEDS: INSULIN ASPART 100 UNIT/ML 1 ML 10 ML VIAL SQ SCH (21:43)
[2018-05-03] MEDS: METOPROLOL TARTRATE 50 MG TAB PO SCH (21:44)
[2018-05-03] MEDS: traMADol 50 MG TAB PO PRN (21:47)
[2018-05-03] MEDS: HEPARIN SODIUM,PORCINE 5,000 UNIT/ML 1 ML VIAL SQ SCH (21:47)
[2018-05-03] MEDS: GABAPENTIN 300 MG CAP PO SCH (23:03)
[2018-05-03] MEDS: ATORVASTATIN 20 MG TAB PO SCH (23:03)
[2018-05-04 04:44] VITALS: RESP 16
[2018-05-04 05:53] LABS: Glucose,Whole Blood 108 mg/dL (75-99)
[2018-05-04] MEDS: INSULIN ASPART 100 UNIT/ML 1 ML 10 ML VIAL SQ SCH ×3 (06:21→17:21)
[2018-05-04 06:24] LABS: Basophils % (A) 1 %; Eosinophils # (A) 0.2 k/uL (0-0.7); Eosinophils % (A) 4 %; HCT 31.6 % (34.0-46.0); HGB 10.4 gm/dL (11.4-16.0); Lymphocytes # (A) 1.7 k/uL (1.0-4.8); Lymphocytes % (A) 35 %; MCH 32.1 pg (25.0-35.0); MCHC 32.9 g/dL (31.0-37.0); MCV 97.6 fL (80.0-100.0); Mean Platelet Volume 6.7; Monocytes # (A) 0.3 k/uL (0-1.0); Monocytes % (A) 6 %; Neutrophils # (A) 2.5 k/uL (1.3-7.7); Neutrophils % (A) 52 %; Platelet Count 146 k/uL (150-450); RBC 3.24 m/uL (3.80-5.40); RDW 13.8 % (11.5-15.5); WBC 4.8 k/uL (3.8-10.6)
[2018-05-04 06:46] LABS: Albumin 3.4 g/dL (3.5-5.0); Total Bilirubin 0.6 mg/dL (0.2-1.3); Total Protein 6.7 g/dL (6.3-8.2)
[2018-05-04] MEDS ORDERED: PANTOPRAZOLE 40 MG TABLET PO SCH (07:30)
[2018-05-04] MEDS: SODIUM CHLORIDE 0.9% 1,000 ML IV SCH ×2 (07:35→17:24)
[2018-05-04] MEDS: HEPARIN SODIUM,PORCINE 5,000 UNIT/ML 1 ML VIAL SQ SCH (08:34)
[2018-05-04] MEDS: GABAPENTIN 300 MG CAP PO SCH ×2 (08:34→17:22)
[2018-05-04] MEDS: METOPROLOL TARTRATE 50 MG TAB PO SCH (08:35)
[2018-05-04] MEDS: traMADol 50 MG TAB PO PRN (08:37)
[2018-05-04] MEDS ORDERED: SODIUM BICARBONATE TAB 650 MG TAB PO SCH (09:00)
[2018-05-04] MEDS ORDERED: ASPIRIN 325 MG TAB PO SCH (09:00)
[2018-05-04] MEDS ORDERED: ISOSORBIDE MONONITRATE 20 MG TAB PO SCH (09:00)
[2018-05-04] MEDS ORDERED: CYANOCOBALAMIN 500 MCG TAB PO SCH (09:00)
[2018-05-04] MEDS ORDERED: ASPIRIN 81 MG PO SCH (09:00)
[2018-05-04] MEDS ORDERED: GLIMEPIRIDE 1 MG TAB PO SCH (09:00)
[2018-05-04] MEDS ORDERED: LOSARTAN 25 MG TAB PO SCH (09:00)
[2018-05-04] MEDS ORDERED: MAGNESIUM OXIDE 400 MG TAB PO SCH (09:00)
[2018-05-04] MEDS ORDERED: MULTIVITAMINS, THERA 1 EACH TAB PO SCH (12:00)
[2018-05-04] MEDS ORDERED: FOLIC ACID 1 MG TAB PO SCH (12:00)
[2018-05-04 12:23] LABS: Glucose,Whole Blood 150 mg/dL (75-99)
--- NOTE | 2018-05-04 12:54 | ECHOF ---
Referral Reason:Stroke MEASUREMENTS -------- HEIGHT: 160.0 cm WEIGHT: 75.3 kg BP: 139/63 RVIDd: 2.8 cm (< 3.3) IVSd: 1.2 cm (0.6 - 1.1) LVIDd: 3.8 cm (3.9 - 5.3) LVPWd: 1.0 cm (0.6 - 1.1) IVSs: 1.3 cm LVIDs: 2.9 cm LVPWs: 1.3 cm LA Diam: 4.4 cm (2.7 - 3.8) LAESV Index (A-L): 30.58 ml/m Ao Diam: 2.7 cm (2.0 - 3.7) AV Cusp: 1.6 cm (1.5 - 2.6) MV EXCURSION: 10.759 mm (> 18.000) MV EF SLOPE: 47 mm/s (70 - 150) EPSS: 0.5 cm MV E Wu: 0.94 m/s MV DecT: 269 ms MV A Wu: 1.18 m/s MV E/A Ratio: 0.80 RAP: 5.00 mmHg RVSP: 33.51 mmHg FINDINGS -------- Sinus rhythm. This was a technically adequate study. The left ventricular size is normal. Left ventricular wall thickness is normal. Overall left vent ricular systolic function is normal with, an EF between 55 - 60 %. The right ventricle is normal in size. LA is midly dilated 29-33ml/m2. The right atrial size is normal. The aortic valve is trileaflet, and appears structurally normal. No aortic stenosis or regurgitation. Mild mitral annular calcification present. Mild mitral regurgitation is present. Mild tricuspid regurgitation present. Right ventricular systolic pressure is normal at < 35 mmHg. The right ventricular systolic pressure, as measured by Doppler, is 33.51mmHg. There is no pulmonic regurgitation present. The aortic root size is normal. There is no pericardial effusion. CONCLUSIONS -------- 1. Sinus rhythm. 2. The left ventricular size is normal. 3. Left ventricular wall thickness is normal. 4. Overall left ventricular systolic function is normal with, an EF between 55 - 60 %. 5. LA is midly dilated 29-33ml/m2. 6. The aortic valve is trileaflet, and appears structurally normal. No aortic stenosis or regurgitati on. 7. Mild mitral annular calcification present. 8. Mild mitral regurgitation is present. 9. Mild tricuspid regurgitation present. 10. Right ventricular systolic pressure is normal at < 35 mmHg. 11. There is no pulmonic regurgitation present. 12. The aortic root size is normal. 13. There is no pericardial effusion. BREAKFAST COOK: Fallon Anderson RDCS
[2018-05-04 14:42] LABS: Hemoglobin A1C 7.4 % (4.0-6.0)
[2018-05-04 15:44] VITALS: BP 161/73; PULSE 63; TEMP 98.2
[2018-05-04 17:12] LABS: Glucose,Whole Blood 133 mg/dL (75-99)
[2018-05-04] MEDS: ATORVASTATIN 20 MG TAB PO SCH (19:33)
--- NOTE | 2018-05-05 00:38 | DS ---
DISCHARGE SUMMARY FINAL DIAGNOSES: 1. Right arm numbness with possible acute transient ischemic attack involving the left hemisphere. 2. Mild hyperkalemia. 3. Renal failure, possibly chronic kidney disease stage III. 4. History of coronary artery disease. 5. History of cerebrovascular accident, transient ischemic attack. 6. Diabetes type 2. 7. History of deep vein thrombosis. 8. Gastroesophageal reflux disease. 9. Hypertension. 10.Hyperlipidemia. 11.Myocardial infarction. 12.History of degenerative joint disease. 13.History of rectal cancer. 14.History of appendectomy. 15.History of colostomy. DISCHARGE DISPOSITION: The patient will be discharged in stable condition with guarded prognosis. HISTORY OF PRESENT ILLNESS: This 73-year-old woman with a past medical history of multiple medical problems, was admitted with right arm numbness and weakness. TIA was considered and full neurovascular workup was negative at this time. A 2D echo with Doppler was also done. The patient will be discharged after clearance of Neurology. 2D echo showed ejection fraction 55-60 percent. DISCHARGE ADVICE AND MEDICATIONS: 1. Diet is cardiac diet. 2. Activity limited until followup. 3. Follow up with Dr. Harris in 2-3. 4. Follow up with Dr. Jackson as recommended. MEDICATIONS: As follows: 1. Vitamin B12 1000 mg p.o. daily. 2. Neurontin 300 mg t.i.d. 3. Amaryl 1 mg p.o. daily. 4. Imdur 20 mg daily. 5. Magnesium 500 mg. 6. Lopressor 50 mg b.i.d. 7. Omeprazole 20 mg daily. 8. Sodium bicarb 650 p.o. daily. 9. Lipitor 20 mg q.h.s. 10.Plavix 75 mg p.o. daily. 11.Folic acid 1 mg. 12.Multivitamins one p.o. daily. 13.Ultram 50 mg q6h p.r.n. Once again the patient is being discharged in stable condition with guarded prognosis. MMODL / IJN: [id number] /
[2018-05-05] MEDS ORDERED: CLOPIDOGREL 75 MG TAB PO SCH (09:00)
--- NOTE | 2018-05-05 09:11 | CONS ---
CONSULTATION DATE OF CONSULTATION: 05/04/2018 CHIEF COMPLAINT: Transient ischemic attack. HISTORY OF PRESENT ILLNESS: Mrs. Anders is a pleasant 73-year-old female who is being evaluated today on 05/04/2018 by the neurology service per the request of Dr. Aponte for a transient ischemic attack. The patient was brought into [facility] Emergency Room with the complaints of numbness and tingling involving her right upper extremity along with some weakness. She described the weakness as a heaviness sensation involving that right arm. Initially, she felt some of these symptoms on Wednesday but the symptoms resolved and did not return at that time. Yesterday, her symptoms returned and she was brought to the emergency room for further workup. A CT scan of the brain was done, which showed no significant abnormalities. A CT scan of the cervical spine was done which showed no evidence of any fractures. Her carotid Doppler showed no hemodynamically significant stenosis. Her cardiac enzymes were negative. Her fasting lipid panel was normal except for mildly elevated triglycerides at 246. Her comprehensive metabolic profile showed mild renal insufficiency with a BUN of 25 and creatinine of 1.21. The patient does take aspirin 81 mg daily at home. At the time of my evaluation, the patient is sitting at the edge of her bed and appears to be in no acute distress. She denies any recurrence of any numbness or tingling since her admission. PAST MEDICAL HISTORY: History of transient ischemic attack, coronary artery disease, diabetes, gastroesophageal reflux disease, history of deep venous thrombosis, hypertension, dyslipidemia, history of myocardial infarction, degenerative joint disease. SOCIAL HISTORY: The patient denies any tobacco, alcohol or drug use. FAMILY HISTORY: Positive for diabetes. HOME MEDICATIONS: Reviewed in the chart. ALLERGIES: No known drug allergies. REVIEW OF SYSTEMS: CONSTITUTIONAL: Negative. EYES: Negative. ENT: Positive for chronic diminished hearing. CARDIOVASCULAR: As mentioned above. RESPIRATORY: Negative. NEUROLOGICAL: As mentioned above. PSYCHIATRIC: Negative. GASTROINTESTINAL: Positive for occasional heartburn. GENITOURINARY: Negative. DERMATOLOGICAL: Negative. PSYCHIATRIC: Negative. MUSCULOSKELETAL: Positive for occasional joint pain. ENDOCRINE: Positive for diabetes. PHYSICAL EXAM: Vital signs show a temperature of 98.2, pulse 63, respirations 16, blood pressure 161/73. GENERAL APPEARANCE: The patient is a well-developed female who appears to be in no acute distress. HEENT: Normocephalic, atraumatic, no facial asymmetry is seen. NECK: Supple with no masses felt. CARDIOVASCULAR: Regular rate and rhythm. ABDOMEN: Nontender, nondistended. Extremities showed no edema or clubbing. NEUROLOGICAL EXAM: The patient is awake and oriented x3. Speech and language are normal. Strength is full in all 4 extremities. Sensory exam was normal to light touch in all 4 extremities. No pronator drift is seen. Mild postural tremors are seen. No facial asymmetry is noticed on cranial nerve testing. IMPRESSION: 1. Transient ischemic attack. 2. Right upper extremity numbness and weakness, resolved. 3. Anemia. 4. Renal insufficiency. 5. Hypertension. RECOMMENDATION: The patient does appear to have suffered a transient ischemic attack with a transient episode of right upper extremity numbness and weakness. Her CT scan of the brain and carotid Doppler showed no significant abnormalities. I had a lengthy discussion with the patient regarding the risk factors. The patient states that she had been on Coumadin in the past but this was likely due to her history of deep venous thrombosis. I will discontinue aspirin and start her on Plavix 75 mg daily. I will order a serum homocysteine level. She will follow up in clinic after discharge. Continue IV hydration for her renal insufficiency. From a neurology standpoint, the patient is cleared for discharge. I will continue to follow with you as needed. Thank you for allowing me to participate in the care of your patient. If you have any questions, please feel free to contact me. KIARRA / NÉSTOR: [id number] /
== END 2018-05-04 20:57 | disposition home or self-care (01) ==
LOC: EC 14:54 → INTOOBSV 18:00 → 3SCARD 18:00
PROVIDERS: ADMIT Hospitalist; ATTEND Hospitalist
DX: R20.0 Anesthesia of skin (principal); R20.2 Paresthesia of skin; R53.1 Weakness; E87.5 Hyperkalemia; E11.22 Type 2 diabetes mellitus with diabetic chronic kidney disease; I25.10 Atherosclerotic heart disease of native coronary artery without angina pectoris; Z86.73 Personal history of transient ischemic attack (TIA), and cerebral infarction without residual deficits; Z86.718 Personal history of other venous thrombosis and embolism; K21.9 Gastro-esophageal reflux disease without esophagitis; E78.5 Hyperlipidemia, unspecified; I10 Essential (primary) hypertension; I25.2 Old myocardial infarction; G89.29 Other chronic pain; M54.9 Dorsalgia, unspecified; Z93.3 Colostomy status; Z85.048 Personal history of other malignant neoplasm of rectum, rectosigmoid junction, and anus; M19.90 Unspecified osteoarthritis, unspecified site; Z79.899 Other long term (current) drug therapy; Z79.82 Long term (current) use of aspirin; Z79.84 Long term (current) use of oral hypoglycemic drugs; Z87.891 Personal history of nicotine dependence; E78.1 Pure hyperglyceridemia; D64.9 Anemia, unspecified; Z92.21 Personal history of antineoplastic chemotherapy; Z92.3 Personal history of irradiation; Z87.440 Personal history of urinary (tract) infections; Z98.0 Intestinal bypass and anastomosis status; Z90.49 Acquired absence of other specified parts of digestive tract
CPT/HCPCS: 96372 ×2; 96360; 96361; 99285; 36415; 93005; 93306; 97161; 97165; 80061; 80053 ×2; 82550; 82553; 84484; 85025 ×2; 85610; 85730; 83036; 71046; 93880; 72125; 70450; G0378 ×3; J1644 ×2

== ENCOUNTER 2018-05-05 18:12 | Emergency (ER) | payer MEDICARE, OTHER ==
[2018-05-05 18:27] VITALS: BP 181/77; PULSE 75; RESP 18; TEMP 98.2
--- NOTE | 2018-05-05 23:39 | ED ---
Neuro HPI - General Source: patient, RN notes reviewed, old records reviewed Mode of arrival: wheelchair Limitations: no limitations - History of Present Illness Is the patient presenting with stroke symptoms?: No <Niesha Hancock - Last Filed: 05/09/18 01:33> <Temi Clifton - Last Filed: 05/13/18 03:53> - General Chief Complaint: Neuro Symptoms/Deficit Stated Complaint: Numbness in arm and leg Time Seen by Provider: 05/05/18 20:24 - History of Present Illness Initial Comments: Patient is a 73-year-old female who presents emergency room today with tingling in her right arm and leg. Patient was seen in emergency department 3 days ago for similar complaints. Patient was discharged recently started on Plavix and increased her Lipitor. She is vitamin her with that time. She states that she has no weakness. She only concerned because she's had the tingling in her arm and leg since she woke up this morning. She was discharged from the hospital yesterday evening. She denies chest pain shortness of breath or any other complaints. (Niesha Hancock) - Related Data Home Medications: Home Medications Medication Instructions Recorded Confirmed Cyanocobalamin (Vitamin B-12) 1,000 mcg PO DAILY 10/30/16 05/05/18 [Vitamin B-12] Glimepiride [Amaryl] 1 mg PO DAILY 10/30/16 05/05/18 Isosorbide Mononitrate 20 mg PO DAILY 10/30/16 05/05/18 Magnesium Oxide [Magnesium] 500 mg PO DAILY 10/30/16 05/05/18 Omeprazole 20 mg PO DAILY 10/30/16 05/05/18 Sodium Bicarbonate Tab 650 mg PO DAILY 10/30/16 05/05/18 Gabapentin [Neurontin] 300 mg PO TID 02/28/18 05/05/18 Metoprolol Tartrate [Lopressor] 50 mg PO BID 05/03/18 05/05/18 Ferrous Sulfate [Feosol] 325 mg PO BID 05/05/18 05/05/18 Previous Rx's Medication Instructions Recorded Folic Acid 1 mg PO DAILY@1200 #30 tab 02/18/17 Multivitamins, Thera [Multivitamin 1 tab PO DAILY #30 tablet 02/18/17 (formulary)] traMADol HCl [Ultram] 50 mg PO Q6H PRN #20 tab 02/18/17 Atorvastatin [Lipitor] 20 mg PO HS #30 tab 05/04/18 Clopidogrel [Plavix] 75 mg PO DAILY #30 tablet 05/04/18 Nitrofurantoin Monohyd/M-Cryst 100 mg PO Q12HR #14 cap 05/06/18 [Macrobid] Allergies/Adverse Reactions: Allergies Allergy/AdvReac Type Severity Reaction Status Date / Time No Known Allergies Allergy Verified 05/05/18 20:28 Review of Systems ROS Other: All systems not noted in ROS Statement are negative. <Niesha Hancock - Last Filed: 05/09/18 01:33> ROS Other: All systems not noted in ROS Statement are negative. <Temi Clifton - Last Filed: 05/13/18 03:53> ROS Statement: Those systems with pertinent positive or pertinent negative responses have been documented in the HPI. General Exam Limitations: no limitations General appearance: alert, in no apparent distress Head exam: Present: atraumatic, normocephalic, normal inspection Eye exam: Present: normal appearance, PERRL, EOMI. Absent: scleral icterus, conjunctival injection, periorbital swelling ENT exam: Present: normal exam, mucous membranes moist Neck exam: Present: normal inspection. Absent: tenderness, meningismus, lymphadenopathy Respiratory exam: Present: normal lung sounds bilaterally. Absent: respiratory distress, wheezes, rales, rhonchi, stridor Cardiovascular Exam: Present: regular rate, normal rhythm, normal heart sounds. Absent: systolic murmur, diastolic murmur, rubs, gallop, clicks GI/Abdominal exam: Present: soft, normal bowel sounds. Absent: distended, tenderness, guarding, rebound, rigid Extremities exam: Present: normal inspection, full ROM, normal capillary refill. Absent: tenderness, pedal edema, joint swelling, calf tenderness Back exam: Present: normal inspection Neurological exam: Present: alert, oriented X3, CN II-XII intact Expanded Patient oriented to: Present: person, place, time Speech: Present: fluid speech Cranial nerves: EOM's Intact: Normal Cerebellar function: Finger to Nose: Normal Upper motor neuron: Pronator Drift: Normal Sensory exam: Upper Extremity Light Touch: Normal, Lower Extremity Light Touch: Normal Motor strength exam: RUE: 5, LUE: 5, RLE: 5, LLE: 5 Eye Response: (4) open spontaneously Motor Response: (6) obeys commands Verbal Response: (5) oriented Maryuri Total: 15 Psychiatric exam: Present: normal affect, normal mood Skin exam: Present: warm, dry, intact, normal color. Absent: rash <Niesha Hancock - Last Filed: 05/09/18 01:33> <Temi Clifton P - Last Filed: 05/13/18 03:53> - General Exam Comments Initial Comments: Well-appearing alert and oriented 73-year-old female. No significant distress. (Niesha Hancock) Stroke MDM - Lab Data Result diagrams: 05/05/18 22:11 05/05/18 22:11 - NIH Stroke Scale 1a. Level of Consciousness: (0) alert 1b. LOC Questions: (0) answers correctly 1c. LOC Commands: (0) performs tasks correctly 2. Best Gaze: (0) normal 3. Visual: (0) no visual loss 4. Facial Palsy: (0) normal symmetrical movement 5a. Motor Arm Left: (0) no drift 5b. Motor Arm Right: (0) no drift 6a. Motor Leg Left: (0) no drift 6b. Motor Leg Right: (0) no drift 7. Limb Ataxia: (0) absent 8. Sensory: (0) normal 9. Best Language: (0) no aphasia 10. Dysarthria: (0) normal 11. Extinction/Inattention: (0) no abnormality NIH Score total: 0 - EKG Data -: EKG Interpreted by Ar Rate: normal When compared to previous EKG there are: no significant change <Niesha Hancock - Last Filed: 05/09/18 01:33> - Lab Data Result diagrams: 05/05/18 22:11 05/05/18 22:11 <Temi Clifton P - Last Filed: 05/13/18 03:53> - Lab Data Lab Results 05/05/18 05/05/18 05/05/18 Range/Units 22:11 22:11 22:11 WBC 6.4 (3.8-10.6) k/uL RBC 3.47 L (3.80-5.40) m/uL Hgb 11.3 L (11.4-16.0) gm/dL Hct 33.3 L (34.0-46.0) % MCV 96.0 (80.0-100.0) fL MCH 32.6 (25.0-35.0) pg MCHC 34.0 (31.0-37.0) g/dL RDW 13.7 (11.5-15.5) % Plt Count 156 (150-450) k/uL Neutrophils % 61 % Lymphocytes % 28 % Monocytes % 6 % Eosinophils % 3 % Basophils % 0 % Neutrophils # 3.9 (1.3-7.7) k/uL Lymphocytes # 1.8 (1.0-4.8) k/uL Monocytes # 0.4 (0-1.0) k/uL Eosinophils # 0.2 (0-0.7) k/uL Basophils # 0.0 (0-0.2) k/uL PT 9.8 (9.0-12.0) sec INR 0.9 (<1.2) APTT 18.9 L (22.0-30.0) sec Sodium 140 (137-145) mmol/L Potassium 4.4 (3.5-5.1) mmol/L Chloride 110 H (98-107) mmol/L Carbon Dioxide 23 (22-30) mmol/L Anion Gap 7 mmol/L BUN 24 H (7-17) mg/dL Creatinine 1.30 H (0.52-1.04) mg/dL Est GFR (CKD-EPI)AfAm 47 (>60 ml/min/1.73 sqM) Est GFR (CKD-EPI)NonAf 40 (>60 ml/min/1.73 sqM) Glucose 110 H (74-99) mg/dL Calcium 9.7 (8.4-10.2) mg/dL Total Bilirubin 0.4 (0.2-1.3) mg/dL AST 38 H (14-36) U/L ALT 38 (9-52) U/L Alkaline Phosphatase 67 (38-126) U/L Total Creatine Kinase (30-135) U/L CK-MB (CK-2) (0.0-2.4) ng/mL CK-MB (CK-2) Rel Index Troponin I (0.000-0.034) ng/mL Total Protein 8.0 (6.3-8.2) g/dL Albumin 4.3 (3.5-5.0) g/dL Amylase 54 (30-110) U/L Lipase 126 (23-300) U/L Urine Color Urine Appearance (Clear) Urine pH (5.0-8.0) Ur Specific [place] (1.001-1.035) Urine Protein (Negative) Urine Glucose (UA) (Negative) Urine Ketones (Negative) Urine Blood (Negative) Urine Nitrite (Negative) Urine Bilirubin (Negative) Urine Urobilinogen (<2.0) mg/dL Ur Leukocyte Esterase (Negative) Urine RBC (0-5) /hpf Urine WBC (0-5) /hpf Urine WBC Clumps (None) /hpf Ur Squamous Epith Cells (0-4) /hpf Urine Bacteria (None) /hpf Urine Mucus (None) /hpf 05/05/18 05/06/18 Range/Units 22:11 00:30 WBC (3.8-10.6) k/uL RBC (3.80-5.40) m/uL Hgb (11.4-16.0) gm/dL Hct (34.0-46.0) % MCV (80.0-100.0) fL MCH (25.0-35.0) pg MCHC (31.0-37.0) g/dL RDW (11.5-15.5) % Plt Count (150-450) k/uL Neutrophils % % Lymphocytes % % Monocytes % % Eosinophils % % Basophils % % Neutrophils # (1.3-7.7) k/uL Lymphocytes # (1.0-4.8) k/uL Monocytes # (0-1.0) k/uL Eosinophils # (0-0.7) k/uL Basophils # (0-0.2) k/uL PT (9.0-12.0) sec INR (<1.2) APTT (22.0-30.0) sec Sodium (137-145) mmol/L Potassium (3.5-5.1) mmol/L Chloride (98-107) mmol/L Carbon Dioxide (22-30) mmol/L Anion Gap mmol/L BUN (7-17) mg/dL Creatinine (0.52-1.04) mg/dL Est GFR (CKD-EPI)AfAm (>60 ml/min/1.73 sqM) Est GFR (CKD-EPI)NonAf (>60 ml/min/1.73 sqM) Glucose (74-99) mg/dL Calcium (8.4-10.2) mg/dL Total Bilirubin (0.2-1.3) mg/dL AST (14-36) U/L ALT (9-52) U/L Alkaline Phosphatase (38-126) U/L Total Creatine Kinase 97 (30-135) U/L CK-MB (CK-2) 4.7 H (0.0-2.4) ng/mL CK-MB (CK-2) Rel Index 4.8 Troponin I <0.012 (0.000-0.034) ng/mL Total Protein (6.3-8.2) g/dL Albumin (3.5-5.0) g/dL Amylase (30-110) U/L Lipase (23-300) U/L Urine Color Light Yellow Urine Appearance Turbid H (Clear) Urine pH 5.5 (5.0-8.0) Ur Specific [place] 1.012 (1.001-1.035) Urine Protein 2+ H (Negative) Urine Glucose (UA) Negative (Negative) Urine Ketones Negative (Negative) Urine Blood Small H (Negative) Urine Nitrite Negative (Negative) Urine Bilirubin Negative (Negative) Urine Urobilinogen <2.0 (<2.0) mg/dL Ur Leukocyte Esterase Large H (Negative) Urine RBC 9 H (0-5) /hpf Urine WBC >182 H (0-5) /hpf Urine WBC Clumps Many H (None) /hpf Ur Squamous Epith Cells 2 (0-4) /hpf Urine Bacteria Many H (None) /hpf Urine Mucus Rare H (None) /hpf - Medical Decision Making I was available for consultation in the emergency department. The history and physical exam were done by the midlevel provider. I was consulted for this patient's care. I reviewed the case with the midlevel provider and based on their presentation of the patient, I agree with the assessment, medical decision making and plan of care as documented. (Temi Clifton) Past Medical History Past Medical History: Coronary Artery Disease (CAD), Cancer, CVA/TIA, Diabetes Mellitus, Deep Vein Thrombosis (DVT), GERD/Reflux, Hyperlipidemia, Hypertension , Myocardial Infarction (DC), Osteoarthritis (OA), Vascular Disorder Additional Past Medical History / Comment(s): tia, chronic back pain, rectal cancer 2008(had sx, chemo, radiation), "bad circulation", emphysema,uti, had a pne vaccine after age 63-not sure of exact date. neuropathy Last Myocardial Infarction Date:: 1994 History of Any Multi-Drug Resistant Organisms: None Reported Past Surgical History: Appendectomy, Bladder Surgery, Bowel Resection, Orthopedic Surgery, Tubal Ligation Additional Past Surgical History / Comment(s): colonoscopy, bowel resection w/ colostomy. stated has 3 colostmy sx. rt great toe amp, rt hand trigger finger sx , blood clots removed rt leg 2008, rt carpal tunnel release,pt stated in september at [facility] had a groin artery cleaned out", "poor circulation" pt stated 'trying to savert foot 2nd toe" Past Anesthesia/Blood Transfusion Reactions: No Reported Reaction Additional Past Anesthesia/Blood Transfusion Reaction / Comment(s): had blood transfusion-no reaction Past Psychological History: No Psychological Hx Reported Smoking Status: Former smoker Past Alcohol Use History: None Reported Past Drug Use History: None Reported - Past Family History Mother Family Medical History: Diabetes Mellitus Father Family Medical History: Myocardial Infarction (DC) <Niesha Hancock - Last Filed: 05/09/18 01:33> Vital Signs 05/05/18 18:23 Temperature 98.2 F Pulse Rate 75 Respiratory 18 Rate Blood Pressure 181/77 O2 Sat by Pulse 98 Oximetry Disposition Is patient prescribed a controlled substance at d/c from ED?: No Time of Disposition: 00:37 <Niesha Hancock - Last Filed: 05/09/18 01:33> <Temi Clifton - Last Filed: 05/13/18 03:53> Clinical Impression: Paresthesia, UTI (urinary tract infection) Disposition: HOME SELF-CARE Condition: Good Instructions: Paresthesia (ED) Additional Instructions: Follow-up with your primary care physician. Return to the emergency department if any alarming signs or symptoms occur. Prescriptions: Nitrofurantoin Monohyd/M-Cryst [Macrobid] 100 mg PO Q12HR #14 cap Referrals: Martina Harris MD [Primary Care Provider] - 1-2 days
[2018-05-06 01:55] LABS: Appearance,Urine Turbid (Clear); Bacteria,Urine Many /hpf; Bilirubin,Urine Negative (Negative); Blood,Urine Small (Negative); Color,Urine Light Yellow; Glucose,Urine (UA) Negative (Negative); Ketones,Urine Negative (Negative); Leukocyte Esterase,Urine Large (Negative); Mucus,Urine Rare /hpf; Nitrite,Urine Negative (Negative); PH, Urine 5.5 (5.0-8.0); Protein,Urine 2+ (Negative); RBC,Urine 9 /hpf (0-5); Specific Gravity,Urine 1.012 (1.001-1.035); Squamous Epithelial Cell,Urine 2 /hpf (0-4); Urobilinogen,Urine <2.0 mg/dL (<2.0); WBC,Urine >182 /hpf (0-5)
[2018-05-06 02:21] LABS: Albumin 4.3 g/dL (3.5-5.0); Calcium 9.7 mg/dL (8.4-10.2); Potassium 4.4 mmol/L (3.5-5.1); Total Bilirubin 0.4 mg/dL (0.2-1.3)
[2018-05-06 02:22] LABS: Creatine Kinase 97 U/L (30-135); Creatine Kinase MB 4.7 ng/mL (0.0-2.4); Troponin I <0.012 ng/mL (0.000-0.034)
[2018-05-06 02:27] LABS: Basophils % (A) 0 %; Eosinophils # (A) 0.2 k/uL (0-0.7); Eosinophils % (A) 3 %; HCT 33.3 % (34.0-46.0); HGB 11.3 gm/dL (11.4-16.0); Lymphocytes # (A) 1.8 k/uL (1.0-4.8); Lymphocytes % (A) 28 %; MCH 32.6 pg (25.0-35.0); Mean Platelet Volume 6.4; Monocytes # (A) 0.4 k/uL (0-1.0); Monocytes % (A) 6 %; Neutrophils # (A) 3.9 k/uL (1.3-7.7); Neutrophils % (A) 61 %; Platelet Count 156 k/uL (150-450); RBC 3.47 m/uL (3.80-5.40); RDW 13.7 % (11.5-15.5); WBC 6.4 k/uL (3.8-10.6)
[2018-05-06 02:37] LABS: INR 0.9 (<1.2); Partial Thromboplastin Time 18.9 sec (22.0-30.0); Prothrombin Time 9.8 sec (9.0-12.0)
== END 2018-05-06 01:05 | disposition home or self-care (01) ==
LOC: EC 18:12
DX: N39.0 Urinary tract infection, site not specified (principal); R20.2 Paresthesia of skin; I25.10 Atherosclerotic heart disease of native coronary artery without angina pectoris; K21.9 Gastro-esophageal reflux disease without esophagitis; E78.5 Hyperlipidemia, unspecified; I10 Essential (primary) hypertension; I25.2 Old myocardial infarction; M19.90 Unspecified osteoarthritis, unspecified site; E11.40 Type 2 diabetes mellitus with diabetic neuropathy, unspecified; Z86.73 Personal history of transient ischemic attack (TIA), and cerebral infarction without residual deficits; Z85.048 Personal history of other malignant neoplasm of rectum, rectosigmoid junction, and anus; Z86.718 Personal history of other venous thrombosis and embolism; Z87.891 Personal history of nicotine dependence; Z79.02 Long term (current) use of antithrombotics/antiplatelets; Z79.899 Other long term (current) drug therapy; Z79.84 Long term (current) use of oral hypoglycemic drugs
CPT/HCPCS: 36415; 80053; 81001; 82150; 82550; 82553; 83690; 84484; 85025; 85610; 85730; 96360; 96361; 99284

== ENCOUNTER 2018-06-20 11:27 | Emergency (ER) | payer MEDICARE, OTHER ==
[2018-06-20 11:34] VITALS: RESP 18
--- NOTE | 2018-06-20 12:04 | ED ---
General Adult HPI - General Chief complaint: Recheck/Abnormal Lab/Rx Stated complaint: Sherron to be removed/put in [facility] Time Seen by Provider: 06/20/18 11:38 Source: patient, family, RN notes reviewed Mode of arrival: wheelchair Limitations: no limitations - History of Present Illness Initial comments: 73-year-old female presents to the emergency department to have sherron removed. Patient had neck surgery on June 02 at [facility] for spinal stenosis. Patient states she was supposed to have these removed last week but was unable to attend her appointment. She states she was supposed to go down to [place] today to have them removed but was concerned about the snow and driving an hour away. Therefore the surgery team told her she could come to the emergency department here to get them removed and started driving to [place]. Patient denies any complications. No infections. Patient states she is feeling fine and just needs her sherron removed. Patient has no other complaints at this time including shortness of breath, chest pain, abdominal pain, nausea or vomiting, headache, or visual changes. - Related Data Home Medications Medication Instructions Recorded Confirmed Glimepiride [Amaryl] 1 mg PO DAILY 10/30/16 06/20/18 Isosorbide Mononitrate 20 mg PO DAILY 10/30/16 06/20/18 Sodium Bicarbonate Tab 650 mg PO DAILY 10/30/16 06/20/18 Gabapentin [Neurontin] 300 mg PO TID 02/28/18 06/20/18 Ferrous Sulfate [Feosol] 325 mg PO BID 05/05/18 06/20/18 Cyanocobalamin [Vitamin B-12] 500 mcg PO DAILY 06/20/18 06/20/18 Losartan [Cozaar] 25 mg PO DAILY 06/20/18 06/20/18 Magnesium Oxide [Mag-Ox] 250 mg PO DAILY 06/20/18 06/20/18 Metoprolol Tartrate [Lopressor] 25 mg PO DAILY 06/20/18 06/20/18 Ranitidine HCl [Zantac] 150 mg PO BID 06/20/18 06/20/18 Simvastatin [Zocor] 20 mg PO HS 06/20/18 06/20/18 Previous Rx's Medication Instructions Recorded Folic Acid 1 mg PO DAILY@1200 #30 tab 02/18/17 Multivitamins, Thera [Multivitamin 1 tab PO DAILY #30 tablet 02/18/17 (formulary)] traMADol HCl [Ultram] 50 mg PO Q6H PRN #20 tab 02/18/17 Clopidogrel [Plavix] 75 mg PO DAILY #30 tablet 05/04/18 Allergies Allergy/AdvReac Type Severity Reaction Status Date / Time No Known Allergies Allergy Verified 06/20/18 11:51 Review of Systems ROS Statement: Those systems with pertinent positive or pertinent negative responses have been documented in the HPI. ROS Other: All systems not noted in ROS Statement are negative. Past Medical History Past Medical History: Coronary Artery Disease (CAD), Cancer, CVA/TIA, Diabetes Mellitus, Deep Vein Thrombosis (DVT), GERD/Reflux, Hyperlipidemia, Hypertension , Myocardial Infarction (MS), Osteoarthritis (OA), Vascular Disorder Additional Past Medical History / Comment(s): tia, chronic back pain, rectal cancer 2008(had sx, chemo, radiation), "bad circulation", emphysema,uti, had a pne vaccine after age 63-not sure of exact date. neuropathy Last Myocardial Infarction Date:: 1994 History of Any Multi-Drug Resistant Organisms: None Reported Past Surgical History: Appendectomy, Bladder Surgery, Bowel Resection, Orthopedic Surgery, Tubal Ligation Additional Past Surgical History / Comment(s): colonoscopy, bowel resection w/ colostomy. stated has 3 colostmy sx. rt great toe amp, rt hand trigger finger sx , blood clots removed rt leg 2008, rt carpal tunnel release,pt stated in september at [facility] had a groin artery cleaned out", "poor circulation" pt stated 'trying to savert foot 2nd toe" Past Anesthesia/Blood Transfusion Reactions: No Reported Reaction Additional Past Anesthesia/Blood Transfusion Reaction / Comment(s): had blood transfusion-no reaction Past Psychological History: No Psychological Hx Reported Smoking Status: Former smoker Past Alcohol Use History: None Reported Past Drug Use History: None Reported - Past Family History Mother Family Medical History: Diabetes Mellitus Father Family Medical History: Myocardial Infarction (MS) General Exam Limitations: no limitations General appearance: alert, in no apparent distress Head exam: Present: atraumatic, normocephalic, normal inspection Eye exam: Present: normal appearance, PERRL, EOMI. Absent: scleral icterus, conjunctival injection, periorbital swelling ENT exam: Present: normal exam, mucous membranes moist Neck exam: Present: other (Patient has a well-healing incision of about 8 cm in the posterior neck with 18 sherron and one cross stitch. No evidence of erythema or signs of infection. Incision is well approximated and healed adequately at this point for staple removal). Absent: full ROM, lymphadenopathy Respiratory exam: Present: normal lung sounds bilaterally. Absent: respiratory distress, wheezes, rales, rhonchi, stridor Cardiovascular Exam: Present: regular rate, normal rhythm, normal heart sounds. Absent: systolic murmur, diastolic murmur, rubs, gallop, clicks Neurological exam: Present: alert, oriented X3, CN II-XII intact Psychiatric exam: Present: normal affect, normal mood Course Vital Signs 06/20/18 11:30 Temperature 97.5 F L Pulse Rate 88 Respiratory 18 Rate Blood Pressure 127/69 O2 Sat by Pulse 98 Oximetry Medical Decision Making - Medical Decision Making 73-year-old female presents to the emergency department for a chief staple removal. Patient came here instead of [facility] after her surgery because of the snow today. This was cleared by [facility]. On exam patient has incision that is well approximated and healed adequately for staple removal. 18 sherron were removed and one cross stitch was removed without difficulty. No evidence of infection or other medications. Patient will follow up with [facility] for further wound rechecks. Disposition Clinical Impression: Removal of sherron Disposition: HOME SELF-CARE Condition: Good Instructions (If sedation given, give patient instructions): Laceration (ED) Additional Instructions: Please keep the area clean. Please follow-up with [facility] in one to 2 days for incision recheck. Please return immediately to the emergency department if you have any worsening symptoms. Is patient prescribed a controlled substance at d/c from ED?: No Referrals: Martina Harris MD [Primary Care Provider] - 1-2 days Time of Disposition: 12:03
[2018-06-20 12:43] VITALS: BP 105/56; PULSE 68; TEMP 97.3
== END 2018-06-20 12:42 | disposition home or self-care (01) ==
LOC: EC 11:27
DX: Z48.02 Encounter for removal of sutures (principal); E78.5 Hyperlipidemia, unspecified; I10 Essential (primary) hypertension; I25.10 Atherosclerotic heart disease of native coronary artery without angina pectoris; E11.40 Type 2 diabetes mellitus with diabetic neuropathy, unspecified; K21.9 Gastro-esophageal reflux disease without esophagitis; I25.2 Old myocardial infarction; Z87.891 Personal history of nicotine dependence; Z79.84 Long term (current) use of oral hypoglycemic drugs; Z79.899 Other long term (current) drug therapy; Z85.048 Personal history of other malignant neoplasm of rectum, rectosigmoid junction, and anus; Z92.21 Personal history of antineoplastic chemotherapy; Z92.3 Personal history of irradiation; Z93.3 Colostomy status
CPT/HCPCS: 99281

== ENCOUNTER → 2018-08-26 | Outpatient (CLI) | payer MEDICARE, OTHER ==
[2018-08-26 10:51] LABS: Basophils % (A) 1 %; Eosinophils # (A) 0.5 k/uL (0-0.7); Eosinophils % (A) 7 %; HCT 32.2 % (34.0-46.0); HGB 10.7 gm/dL (11.4-16.0); Lymphocytes # (A) 1.8 k/uL (1.0-4.8); Lymphocytes % (A) 27 %; MCH 31.3 pg (25.0-35.0); MCHC 33.4 g/dL (31.0-37.0); MCV 93.8 fL (80.0-100.0); Mean Platelet Volume 8.7; Monocytes # (A) 0.4 k/uL (0-1.0); Monocytes % (A) 6 %; Neutrophils # (A) 3.6 k/uL (1.3-7.7); Neutrophils % (A) 56 %; Platelet Count 185 k/uL (150-450); RBC 3.43 m/uL (3.80-5.40); RDW 15.2 % (11.5-15.5); WBC 6.4 k/uL (3.8-10.6)
[2018-08-26 15:59] LABS: Albumin 4.3 g/dL (3.80-4.90); Albumin/Globulin Ratio 1.65 (1.60-3.17); Calcium 9.6 mg/dL (8.7-10.3); Globulin 2.6 g/dL (1.6-3.3); LDL Cholesterol,Calculated 38.2 mg/dL (0.0-131.0); Potassium 5.3 mmol/L (3.5-5.5); Total Bilirubin 0.4 mg/dL (0.2-1.2); Total Protein 6.9 g/dL (6.2-8.2); VLDL Calculation 32.8 mg/dL (5.00-40.00)
== END ==
LOC: LABWHC1 09:18
PROVIDERS: ATTEND Internal Medicine
DX: E11.65 Type 2 diabetes mellitus with hyperglycemia (principal); E78.00 Pure hypercholesterolemia, unspecified; I10 Essential (primary) hypertension
CPT/HCPCS: 36415; 80053; 80061; 85025

== ENCOUNTER → 2019-02-23 | Outpatient (CLI) | payer MEDICARE, OTHER ==
[2019-02-23 13:43] LABS: Basophils % (A) 1 %; Eosinophils # (A) 0.3 k/uL (0-0.7); Eosinophils % (A) 4 %; HCT 32.8 % (34.0-46.0); HGB 11.2 gm/dL (11.4-16.0); Lymphocytes # (A) 1.7 k/uL (1.0-4.8); Lymphocytes % (A) 29 %; MCH 33.5 pg (25.0-35.0); MCHC 34.2 g/dL (31.0-37.0); Mean Platelet Volume 6.3; Monocytes # (A) 0.4 k/uL (0-1.0); Monocytes % (A) 6 %; Neutrophils # (A) 3.3 k/uL (1.3-7.7); Neutrophils % (A) 57 %; Platelet Count 147 k/uL (150-450); RBC 3.35 m/uL (3.80-5.40); RDW 13.6 % (11.5-15.5); WBC 5.8 k/uL (3.8-10.6)
[2019-02-23 21:12] LABS: Hemoglobin A1C 7.2 % (4.0-6.0)
[2019-02-23 23:35] LABS: African American GFR (CKD) 42.2 (60.0-200.0); Albumin 4.1 g/dL (3.80-4.90); Albumin/Globulin Ratio 1.58 (1.60-3.17); Anion Gap 8.1 mmol/L (4.00-12.00); BUN/Creat Ratio 15.71 Ratio (12.00-20.00); Calcium 9.2 mg/dL (8.7-10.3); Carbon Dioxide 22.9 mmol/L (21.6-31.8); Chol/HDL Ratio 2.81; Globulin 2.6 g/dL (1.6-3.3); LDL Cholesterol,Calculated 42.2 mg/dL (0.0-131.0); Potassium 5.5 mmol/L (3.5-5.5); Total Bilirubin 0.5 mg/dL (0.3-1.2); Total Protein 6.7 g/dL (6.2-8.2); VLDL Calculation 42.8 mg/dL (5.00-40.00)
== END | disposition home or self-care (01) ==
LOC: LABWHC1 09:37
PROVIDERS: ATTEND Internal Medicine
DX: E11.65 Type 2 diabetes mellitus with hyperglycemia (principal); I10 Essential (primary) hypertension; E78.00 Pure hypercholesterolemia, unspecified
CPT/HCPCS: 36415; 80053; 80061; 82043; 82570; 83036; 85025

== ENCOUNTER → 2019-11-10 | Outpatient (CLI) | payer MEDICARE, OTHER ==
[2019-11-10 09:26] LABS: Basophils % (A) 0 %; Eosinophils # (A) 0.4 k/uL (0-0.7); Eosinophils % (A) 5 %; HCT 34.7 % (34.0-46.0); HGB 11.3 gm/dL (11.4-16.0); Lymphocytes # (A) 1.9 k/uL (1.0-4.8); Lymphocytes % (A) 26 %; MCH 32.4 pg (25.0-35.0); MCHC 32.6 g/dL (31.0-37.0); MCV 99.4 fL (80.0-100.0); Mean Platelet Volume 7.3; Monocytes # (A) 0.4 k/uL (0-1.0); Monocytes % (A) 5 %; Neutrophils # (A) 4.4 k/uL (1.3-7.7); Neutrophils % (A) 61 %; Platelet Count 149 k/uL (150-450); RBC 3.49 m/uL (3.80-5.40); RDW 12.9 % (11.5-15.5); WBC 7.3 k/uL (3.8-10.6)
[2019-11-10 16:55] LABS: African American GFR (CKD) 35.9 (60.0-200.0); Albumin 4.2 g/dL (3.80-4.90); Albumin/Globulin Ratio 1.68 (1.60-3.17); Anion Gap 10.3 mmol/L (4.00-12.00); BUN/Creat Ratio 21.88 Ratio (12.00-20.00); Calcium 9.2 mg/dL (8.7-10.3); Carbon Dioxide 21.7 mmol/L (21.6-31.8); Chol/HDL Ratio 2.58; Globulin 2.5 g/dL (1.6-3.3); LDL Cholesterol,Calculated 31.8 mg/dL (0.0-131.0); Potassium 4.7 mmol/L (3.5-5.5); Total Bilirubin 0.4 mg/dL (0.2-1.2); Total Protein 6.7 g/dL (6.2-8.2); VLDL Calculation 36.2 mg/dL (5.00-40.00)
[2019-11-10 18:25] LABS: Hemoglobin A1C 8.2 % (4.0-6.0)
[2019-11-10 18:53] LABS: Urine Creatinine 168.3 mg/dL
== END | disposition home or self-care (01) ==
LOC: LABWHC1 08:56
PROVIDERS: ATTEND Internal Medicine
DX: E78.00 Pure hypercholesterolemia, unspecified (principal); E11.65 Type 2 diabetes mellitus with hyperglycemia; I10 Essential (primary) hypertension
CPT/HCPCS: 36415; 80053; 80061; 82043; 82570; 83036; 85025

== ENCOUNTER → 2020-05-01 | Outpatient (CLI) | payer MEDICARE ==
[~2020-05-01] MED LIST: FUROSEMIDE 10 MG/ML 2 ML VIAL IV ONE
--- NOTE | 2020-05-02 10:30 | NM ---
EXAMINATION TYPE: NM lasix renogram DATE OF EXAM: 05/01/2020 COMPARISON: NONE HISTORY: Hydronephrosis Following administration of 10 mCi Tc 99m MAG3 with 20mg Lasix. Immediate images post injection FINDINGS: Left: 49.1 %. Right: 50.9 %. Max renal flow left: 6.33 minutes. Max renal flow right: 50.9 minutes. Satisfactory accumulation of radiotracer within both renal collecting systems. After the administrati on of Lasix, there is prompt excretion from both collecting systems. T 1/2 left: Unable to determine minutes. T 1/2 right: Unable to determine minutes. IMPRESSION: 1. Symmetric split renal function. Time activity curves appear normal. 2. There may be mild prominence of the left renal collecting system
== END | disposition home or self-care (01) ==
LOC: RADNMMAIN 13:03
PROVIDERS: ATTEND Urology
DX: N13.30 Unspecified hydronephrosis (principal)
CPT/HCPCS: 78708; A9562

== ENCOUNTER → 2020-07-15 | Outpatient (CLI) | payer MEDICARE, OTHER ==
--- NOTE | 2020-07-15 13:04 | US ---
EXAMINATION TYPE: US venous doppler duplex LE LT DATE OF EXAM: 07/15/2020 12:43 PM COMPARISON: NONE Left foot swelling x 1 week. Left lower leg skin redness. Orthopedic surgeon's offic e placed knee compression on left knee with swelling noted superior and inferior to compression sleev e. CLINICAL HISTORY: L03.116 I80.9. SIDE PERFORMED: Left TECHNIQUE: The lower extremity deep venous system is examined utilizing real time linear array sonog baljeet with graded compression, doppler sonography and color-flow sonography. VESSELS IMAGED: Common Femoral Vein Deep Femoral Vein Greater Saphenous Vein * Femoral Vein Popliteal Vein Small Saphenous Vein * Proximal Calf Veins (* superficial vessels) Left Leg: Negative for DVT. Edema channels are seen left ankle. IMPRESSION: 1. No ultrasound evidence deep venous thrombosis left lower extremity. 2. Soft tissue swelling left ankle
== END | disposition home or self-care (01) ==
LOC: RADUSWWP 12:18
PROVIDERS: ATTEND Orthopaedic Surgery
DX: M79.89 Other specified soft tissue disorders (principal); M17.12 Unilateral primary osteoarthritis, left knee

== ENCOUNTER → 2020-11-06 | Outpatient (CLI) | payer MEDICARE, OTHER ==
[2020-11-06 17:46] LABS: Basophils # (A) 0.03 X 10*3/uL (0.00-0.10); Basophils % (A) 0.5 %; Eosinophils # (A) 0.18 X 10*3/uL (0.04-0.35); Eosinophils % (A) 2.9 %; HCT 31.4 % (37.2-46.3); HGB 9.8 g/dL (12.0-15.0); Lymphocytes # (A) 1.48 X 10*3/uL (0.90-5.00); Lymphocytes % (A) 23.8 %; MCH 31.4 pg (27.0-32.0); MCHC 31.2 g/dL (32.0-37.0); MCV 100.6 fL (80.0-97.0); Mean Platelet Volume 10.7 fL (9.5-12.2); Monocytes # (A) 0.52 X 10*3/uL (0.20-1.00); Monocytes % (A) 8.4 %; Neutrophils # (A) 3.99 X 10*3/uL (1.80-7.70); Neutrophils % (A) 64.1 %; Platelet Count 131 X 10*3/uL (140-440); RBC 3.12 X 10*6/uL (4.10-5.20); RDW 14.1 % (11.5-14.5); WBC 6.22 X 10*3/uL (4.50-10.00)
[2020-11-06 22:14] LABS: Hemoglobin A1C 7.1 % (4.0-6.0)
[2020-11-06 23:11] LABS: African American GFR (CKD) 38.5 (60.0-200.0); Albumin 3.8 g/dL (3.80-4.90); Albumin/Globulin Ratio 1.23 (1.60-3.17); Anion Gap 10.1 mmol/L (4.00-12.00); BUN/Creat Ratio 21.33 Ratio (12.00-20.00); Carbon Dioxide 22.9 mmol/L (21.6-31.8); Chol/HDL Ratio 2.74; Globulin 3.1 g/dL (1.6-3.3); Non-African American GFR(CKD) 33.3 (60.0-200.0); Potassium 4.1 mmol/L (3.5-5.5); Total Bilirubin 0.5 mg/dL (0.3-1.2); Total Protein 6.9 g/dL (6.2-8.2)
== END | disposition home or self-care (01) ==
LOC: LABWHC1 09:12
PROVIDERS: ATTEND Internal Medicine
DX: Z00.00 Encounter for general adult medical examination without abnormal findings (principal); E78.00 Pure hypercholesterolemia, unspecified; E11.65 Type 2 diabetes mellitus with hyperglycemia; I10 Essential (primary) hypertension
CPT/HCPCS: 36415; 80053; 80061; 83036; 85025

== ENCOUNTER → 2021-06-17 | Outpatient (CLI) | payer MEDICARE, OTHER | END | disposition home or self-care (01) | LOC: RADMRIMAIN 14:35 | PROVIDERS: ATTEND Physical Medicine & Rehabilitation | DX: Z53.9 Procedure and treatment not carried out, unspecified reason (principal) ==

== ENCOUNTER → 2021-10-15 | Outpatient (CLI) | payer MEDICARE, OTHER ==
[2021-10-15 15:00] LABS: Basophils # (A) 0.02 X 10*3/uL (0.00-0.10); Basophils % (A) 0.4 %; Eosinophils # (A) 0.12 X 10*3/uL (0.04-0.35); Eosinophils % (A) 2.2 %; HCT 29.7 % (37.2-46.3); HGB 9.6 g/dL (12.0-15.0); Immature Grans, Automated 0.5 %; Lymphocytes # (A) 1.24 X 10*3/uL (0.90-5.00); Lymphocytes % (A) 22.3 %; MCH 32.2 pg (27.0-32.0); MCHC 32.3 g/dL (32.0-37.0); MCV 99.7 fL (80.0-97.0); Mean Platelet Volume 9.5 fL (9.5-12.2); Monocytes # (A) 0.54 X 10*3/uL (0.20-1.00); Monocytes % (A) 9.7 %; NRBC Per 100 WBC 0 /100 WBCS (0.0-0.0); Neutrophils # (A) 3.61 X 10*3/uL (1.80-7.70); Neutrophils % (A) 64.9 %; Platelet Count 165 X 10*3/uL (140-440); RBC 2.98 X 10*6/uL (4.10-5.20); RDW 14.1 % (11.5-14.5); WBC 5.56 X 10*3/uL (4.50-10.00)
[2021-10-15 15:52] LABS: ALT 14 U/L (8-44); AST 20 U/L (13-35); Albumin 3.3 g/dL (3.8-4.9); Albumin/Globulin Ratio 0.85 (1.60-3.17); Alkaline Phosphatase 102 U/L (41-126); Blood Urea Nitrogen 39.4 mg/dL (9.0-27.0); Calcium 9.4 mg/dL (8.7-10.3); Carbon Dioxide 23.1 mmol/L (20.0-27.5); Chloride 104 mmol/L (96-109); Chol/HDL Ratio 2.23 Ratio; Globulin 3.9 g/dL (1.6-3.3); Glucose 133 mg/dL (70-110); LDL Cholesterol,Calculated 47.3 mg/dL (0.0-131.0); Non-African American GFR(CKD) 23.3 (60.0-200.0); Potassium 4.9 mmol/L (3.5-5.5); Sodium 138 mmol/L (135-145); Total Protein 7.2 g/dL (6.2-8.2)
== END | disposition home or self-care (01) ==
LOC: LABWHC1 09:23
PROVIDERS: ATTEND Internal Medicine
DX: I10 Essential (primary) hypertension (principal); E78.00 Pure hypercholesterolemia, unspecified; E11.65 Type 2 diabetes mellitus with hyperglycemia
CPT/HCPCS: 36415; 80053; 80061; 82043; 82570; 83036; 85025

== ENCOUNTER → 2021-10-31 | Outpatient (CLI) | payer MEDICARE, OTHER ==
[~2021-10-31] MED LIST changes: -FUROSEMIDE 10 MG/ML 2 ML VIAL IV ONE; +SODIUM CHLORIDE 0.9% 1,000 ML IV ONE
[2021-10-31 11:02] VITALS: BP 158/75; PULSE 100; RESP 18; TEMP 98
== END ==
LOC: PROCWHC3 10:33
PROVIDERS: ATTEND Internal Medicine Hematology & Oncology
DX: C34.32 Malignant neoplasm of lower lobe, left bronchus or lung (principal); Z87.891 Personal history of nicotine dependence
CPT/HCPCS: 96360; 96361; J1642

== ENCOUNTER → 2021-11-05 | Outpatient (CLI) | payer MEDICARE, OTHER ==
[2021-11-05 12:03] LABS: Creatinine,Urine Random 172.9 mg/dL; Protein/Creatinine Ratio,Urine 1.648
[2021-11-05 15:42] LABS: Basophils # (A) 0.03 X 10*3/uL (0.00-0.10); Basophils % (A) 0.4 %; Eosinophils # (A) 0.24 X 10*3/uL (0.04-0.35); Eosinophils % (A) 3.5 %; HCT 27.8 % (37.2-46.3); HGB 8.6 g/dL (12.0-15.0); Immature Grans, Automated 0.6 %; Lymphocytes # (A) 1.43 X 10*3/uL (0.90-5.00); MCH 30.9 pg (27.0-32.0); MCHC 30.9 g/dL (32.0-37.0); Mean Platelet Volume 9.3 fL (9.5-12.2); Monocytes # (A) 0.31 X 10*3/uL (0.20-1.00); Monocytes % (A) 4.6 %; NRBC Per 100 WBC 0 /100 WBCS (0.0-0.0); Neutrophils # (A) 4.76 X 10*3/uL (1.80-7.70); Neutrophils % (A) 69.9 %; Platelet Count 187 X 10*3/uL (140-440); RBC 2.78 X 10*6/uL (4.10-5.20); RDW 14.8 % (11.5-14.5); WBC 6.81 X 10*3/uL (4.50-10.00)
[2021-11-05 16:03] LABS: Albumin 3.1 g/dL (3.8-4.9)
[2021-11-05 16:58] LABS: % Iron Saturation 17.42 (12.00-45.00); African American GFR (CKD) 30.9 (60.0-200.0); Anion Gap 14.5 mmol/L (10.00-18.00); BUN/Creat Ratio 16.98 Ratio (12.00-20.00); Blood Urea Nitrogen 30.4 mg/dL (9.0-27.0); Calcium 8.7 mg/dL (8.7-10.3); Carbon Dioxide 18.7 mmol/L (20.0-27.5); Magnesium 1.7 mg/dL (1.5-2.4); Non-African American GFR(CKD) 26.7 (60.0-200.0); Phosphorus 3.5 mg/dL (2.4-5.1); Potassium 4.1 mmol/L (3.5-5.5); Uric Acid 7.6 mg/dL (2.9-7.7)
[2021-11-05 17:18] LABS: Appearance,Urine Clear (Clear); Bilirubin,Urine Negative (Negative); Blood,Urine Small (Negative); Color,Urine Yellow (Yellow); Ketones,Urine Negative (Negative); Nitrite,Urine Negative (Negative); Urobilinogen,Urine 0.2 (0.2,1.0)
[2021-11-05 17:27] LABS: Bacteria,Urine 4+ /HPF (None Seen)
== END | disposition home or self-care (01) ==
LOC: LABWHC1 09:48
PROVIDERS: ATTEND Internal Medicine Nephrology
DX: E55.9 Vitamin D deficiency, unspecified (principal); D64.9 Anemia, unspecified; N25.81 Secondary hyperparathyroidism of renal origin; M10.9 Gout, unspecified; N39.0 Urinary tract infection, site not specified; R80.9 Proteinuria, unspecified
CPT/HCPCS: 36415; 80048; 81001; 82040; 82306; 82570; 82728; 83540; 83550; 83735; 83970; 84100; 84156; 84550; 85025

== ENCOUNTER → 2022-06-02 | Outpatient (CLI) | payer MEDICARE, OTHER ==
[2022-06-02 14:29] LABS: African American GFR (CKD) 28.6 (60.0-200.0); Albumin 3.9 g/dL (3.8-4.9); Albumin/Globulin Ratio 1.22 (1.60-3.17); Anion Gap 12.4 mmol/L (10.00-18.00); BUN/Creat Ratio 20.53 Ratio (12.00-20.00); Calcium 9.5 mg/dL (8.7-10.3); Carbon Dioxide 22.6 mmol/L (20.0-27.5); Globulin 3.2 g/dL (1.6-3.3); Non-African American GFR(CKD) 24.6 (60.0-200.0); Potassium 4.4 mmol/L (3.5-5.5); Total Bilirubin 0.3 mg/dL (0.30-1.20); Total Protein 7.1 g/dL (6.2-8.2)
== END | disposition home or self-care (01) ==
LOC: LABWHC1 08:51
PROVIDERS: ATTEND Nurse Practitioner Adult Health
DX: I50.22 Chronic systolic (congestive) heart failure (principal)
CPT/HCPCS: 36415; 80053; 83880